=== PATIENT | male | born 1965 | race Two or more races ===

== ENCOUNTER 2018-11-18 02:51 | Inpatient (IN) | payer MEDICAID ==
[~2018-11-18] VITALS: Ht 172.7 cm; Wt 99.8 kg
[2018-11-18 03:15] VITALS: BP 110/71
--- NOTE | 2018-11-18 03:15 | NUR ---
ED Nurse Note: RECIEVED PT FROM HOME ON [facility] AWAKE, ALERT AND ORIENTED X 4, PT HERE WITH C/O SEVERRE,SUDDEN ABDOMINAL PAIN AT 10/10 THAT STARTED AT 1AM, PT ALSO SWEATING PROFUSELY, DENIES CP, MILD SOB DUE TO PAIN, PT IS PALECOLORED, SKIN IS COOL AND SWEATING, PT DENIES DIARRHEA OR ANY OTHER COMPLAINTS OR DISCOMFORTS, PT IMMEDIATELY PLACED ON MONITORING, AND LINE AND LABS DONE, MD AT BEDSIDE, WILL RESUME CARE ORDERED.
[2018-11-18] MEDS ORDERED: PEPTO-BISMOL262 M1 PO (03:17)
--- NOTE | 2018-11-18 03:30 | NUR ---
ED Nurse Note: Blood and urine sample collected and sent to Lab.
--- NOTE | 2018-11-18 03:33 | Emergency Room Report ---
History of Present Illness General Chief Complaint: Abdominal Pain Source: Patient Present Illness HPI This is a 53-year-old male with no past medical history. He presents with chief complaint abdominal pain or vomiting. Onset for last 2 hours. Vomiting is profuse in nature. Abdominal pain is mostly epigastric. Sharp and crampy. No diarrhea. No trauma. No fever chills. No previous abdominal surgery. It is 9 out of 10. No radiation. Allergies: Coded Allergies: No Known Allergies (Unverified , 11/18/18) Patient History Past Medical History: none, see triage record, old chart reviewed Past Surgical History: none Pertinent Family History: none Social History: Denies: smoking Immunizations: other Reviewed Nursing Documentation: PMH: Agreed; PSxH: Agreed Nursing Documentation-PMH Past Medical History: No Stated History Review of Systems Eye: Denies: eye pain, blurred vision ENT: Denies: ear pain, nose congestion, throat swelling Respiratory: Denies: cough, shortness of breath Cardiovascular: Denies: chest pain, palpitations Gastrointestinal: Reports: abdominal pain, nausea, vomiting; Denies: diarrhea Musculoskeletal: Denies: back pain, joint pain Skin: Denies: rash Neurological: Denies: headache, numbness Endocrine: Denies: increased thirst, increased urine Hematologic/Lymphatic: Denies: easy bruising All Other Systems: negative except mentioned in HPI Physical Exam Vital Signs Date Time Temp Pulse Resp B/P (MAP) Pulse Ox O2 Delivery O2 Flow Rate FiO2 11/18/18 03:12 97.9 84 16 81/54 94 Room Air vitals with hypotension Sp02 EP Interpretation: reviewed, normal General Appearance: well appearing, no apparent distress, alert, obese Head: normocephalic, atraumatic Eyes: bilateral eye PERRL, bilateral eye EOMI ENT: hearing grossly normal, normal pharynx Neck: full range of motion, supple, no meningismus Respiratory: chest non-tender, lungs clear, normal breath sounds Cardiovascular #1: regular rate, rhythm, no murmur Gastrointestinal: no mass, no organomegaly, no bruit, non-distended, tenderness - Epigastric, decreased bowel sounds Musculoskeletal: back normal, gait/station normal, normal range of motion Psychiatric: mood/affect normal Skin: warm/dry Medical Decision Making Diagnostic Impression: Primary Impression: Acute gallstone pancreatitis ER Course Patient present with acute upper quadrants abdominal pain. Laboratory data indicate gallstone pancreatitis with probable common bile duct stone. His pain is better controlled. patient will be admitted here. I contacted Dr. Sykes for admis Laboratory Tests Test 11/18/18 03:20 11/18/18 04:24 White Blood Count 15.7 K/UL (4.8-10.8) H Red Blood Count 5.07 M/UL (4.70-6.10) Hemoglobin 16.5 G/DL (14.2-18.0) Hematocrit 46.4 % (42.0-52.0) Mean Corpuscular Volume 91 FL (80-99) Mean Corpuscular Hemoglobin 32.6 PG (27.0-31.0) H Mean Corpuscular Hemoglobin Concent 35.7 G/DL (32.0-36.0) Red Cell Distribution Width 11.3 % (11.6-14.8) L Platelet Count 251 K/UL (150-450) Mean Platelet Volume 7.4 FL (6.5-10.1) Neutrophils (%) (Auto) 68.4 % (45.0-75.0) Lymphocytes (%) (Auto) 23.6 % (20.0-45.0) Monocytes (%) (Auto) 6.0 % (1.0-10.0) Eosinophils (%) (Auto) 0.8 % (0.0-3.0) Basophils (%) (Auto) 1.3 % (0.0-2.0) Sodium Level 140 MMOL/L (136-145) Potassium Level 3.3 MMOL/L (3.5-5.1) L Chloride Level 104 MMOL/L (98-107) Carbon Dioxide Level 23 MMOL/L (21-32) Anion Gap 13 mmol/L (5-15) Blood Urea Nitrogen 14 mg/dL (7-18) Creatinine 1.5 MG/DL (0.55-1.30) H Estimat Glomerular Filtration Rate 49.0 mL/min (>60) Glucose Level 196 MG/DL (74-106) H Calcium Level 9.4 MG/DL (8.5-10.1) Total Bilirubin 1.8 MG/DL (0.2-1.0) H Direct Bilirubin 1.1 MG/DL (0.0-0.3) H Aspartate Amino Transf (AST/SGOT) 656 U/L (15-37) H Alanine Aminotransferase (ALT/SGPT) 693 U/L (12-78) H Alkaline Phosphatase 143 U/L (46-116) H Total Protein 8.4 G/DL (6.4-8.2) H Albumin 4.2 G/DL (3.4-5.0) Globulin 4.2 g/dL Albumin/Globulin Ratio 1.0 (1.0-2.7) Lipase 30366 U/L (73-393) H Urine Color Yellow Urine Appearance Clear Urine pH 5 (4.5-8.0) Urine Specific [place] 1.015 (1.005-1.035) Urine Protein 2+ (NEGATIVE) H Urine Glucose (UA) Negative (NEGATIVE) Urine Ketones Negative (NEGATIVE) Urine Blood 1+ (NEGATIVE) H Urine Nitrite Negative (NEGATIVE) Urine Bilirubin Negative (NEGATIVE) Urine Urobilinogen 1 MG/DL (0.0-1.0) H Urine Leukocyte Esterase Negative (NEGATIVE) Urine RBC 0-2 /HPF (0 - 0) H Urine WBC 0 /HPF (0 - 0) Urine Squamous Epithelial Cells Few /LPF (NONE/OCC) Urine Bacteria None /HPF (NONE) Lab Results Impression labs with elevated liver enzyme and elevated lipase Rhythm Strip Diag. Results EP Interpretation: yes Rate: 90 Rhythm: NSR, no PVC's, no ectopy CT/MRI/US Diagnostic Results CT/MRI/US Diagnostic Results : Imaging Test Ordered: CT abdomen and pelvis Impression Read by radiologist. Pancreatitis. Calcification of the gallbladder fundus. Common bile duct normal caliber. Last Vital Signs Date Time Temp Pulse Resp B/P (MAP) Pulse Ox O2 Delivery O2 Flow Rate FiO2 11/18/18 03:12 97.9 84 16 81/54 94 Room Air Status: improved Disposition: ADMITTED INPATIENT Condition: Serious Referrals: [facility],REFERRING (PCP) Christopher Roa MD Nov 18, 2018 03:33
[2018-11-18 03:44] LABS: BASOPHILS % (AUTO) 1.3 % (0.0-2.0); EOSINOPHILS % (AUTO) 0.8 % (0.0-3.0); HEMATOCRIT 46.4 % (42.0-52.0); HEMOGLOBIN 16.5 G/DL (14.2-18.0); LYMPHOCYTES % (AUTO) 23.6 % (20.0-45.0); MEAN CORPUSCULAR VOLUME 91 FL (80-99); NEUTROPHILS % (AUTO) 68.4 % (45.0-75.0); PLATELET COUNT 251 K/UL (150-450); RED BLOOD COUNT 5.07 M/UL (4.70-6.10); RED CELL DISTRIBUTION WIDTH 11.3 % (11.6-14.8); WHITE BLOOD COUNT 15.7 K/UL (4.8-10.8)
[2018-11-18] MEDS ORDERED: Morphine Sulfate 4mg/ml Inj (IV/IM USE ONLY) IVP ONE (03:45)
[2018-11-18 03:56] LABS: ANION GAP 13 mmol/L (5-15); BLOOD UREA NITROGEN 14 mg/dL (7-18); CALCIUM 9.4 MG/DL (8.5-10.1); CARBON DIOXIDE 23 MMOL/L (21-32); CHLORIDE 104 MMOL/L (98-107); CREATININE 1.5 MG/DL (0.55-1.30); POTASSIUM 3.3 MMOL/L (3.5-5.1); SODIUM 140 MMOL/L (136-145)
[2018-11-18 04:06] LABS: ALANINE AMINOTRANSFERASE 693 U/L (12-78); ALBUMIN 4.2 G/DL (3.4-5.0); ALKALINE PHOSPHATASE 143 U/L (46-116); ASPARTATE AMINO TRANSFERASE 656 U/L (15-37); BILIRUBIN,TOTAL 1.8 MG/DL (0.2-1.0)
[2018-11-18 04:10] LABS: BILIRUBIN,DIRECT 1.1 MG/DL (0.0-0.3)
[2018-11-18] MEDS ORDERED: HYDROmorphone 1mg/ml Carpuject IVP ONE (04:15)
[2018-11-18] MEDS ORDERED: Morphine Sulfate 4mg/ml Inj (IV/IM USE ONLY) ONE (04:18)
--- NOTE | 2018-11-18 04:20 | NUR ---
ED Nurse Note: Pain meds given as ordered.
[2018-11-18 04:29] LABS: APPEARANCE,URINE CLEAR; BILIRUBIN, URINE NEGATIVE (NEGATIVE); GLUCOSE, URINE (UA) NEGATIVE (NEGATIVE); KETONES,URINE NEGATIVE (NEGATIVE); LEUKOCYTE ESTERASE ,URINE NEGATIVE (NEGATIVE); NITRITE,URINE NEGATIVE (NEGATIVE); PH,URINE 5 (4.5-8.0); PROTEIN,URINE 2+ (NEGATIVE); UROBILINOGEN,URINE 1 MG/DL (0.0-1.0)
[2018-11-18] MEDS ORDERED: HYDROmorphone 1mg/ml Carpuject ONE (04:29)
[2018-11-18 04:32] LABS: COLOR,URINE YELLOW
[2018-11-18 05:45] VITALS: BP 150/76
--- NOTE | 2018-11-18 05:45 | NUR ---
NURSE NOTES: Pt came up to unit from ER via [place] w/belongings accounted for; pt's family at bedside.Pt A&Ox4, VSS, and in no apparent distress. IV site intact/asymptomatic & H/L'd; bowel sounds hypoactive; w/o N/V; and c/o 4/10 abdominal pain. Will contact MD for admission orders.
--- NOTE | 2018-11-18 05:55 | NUR ---
TRANSFER TO FLOOR: Patient transferred to 3E/309 as ordered. Report given to Karley/RN. Belongings sent with Pt and re-checked with RN.Pt is A/O X 4. VSS. Accompanied by his family.
[2018-11-18] MEDS ORDERED: NKM (05:59)
[2018-11-18] MEDS ORDERED: Morphine Sulfate 2mg/ml Inj IVP PRN (07:00)
--- NOTE | 2018-11-18 07:43 | NUR ---
HAND-OFF: Report given to IFRAH Guajardo.
[2018-11-18 08:00] VITALS: BP 149/98
--- NOTE | 2018-11-18 08:00 | NUR ---
NURSE NOTES: Patient is alert and oriented,respirations are unlabored.IV in place and patient order for IV fluids as ordered.No complaints at this time.call light within reach.
[2018-11-18] MEDS: D5 1/2NS 1,000 ML IV SCH ×2 (08:41→17:00)
[2018-11-18] MEDS: Heparin 5000 units/ml inj SUBQ SCH ×2 (08:50→20:25)
[2018-11-18] MEDS: Morphine Sulfate 4mg/ml Inj (IV/IM USE ONLY) IVP PRN ×3 (08:59→20:26)
--- NOTE | 2018-11-18 10:34 | NUR ---
CASE MANAGEMENT: REVIEW 53/M BIBA FROM HOME CC: ABD PAIN SI: GALLSTONE . PANCREATITIS T 97.4 HR 81 RR 20 BP 150/76 SAT 96% ROOM AIR WBC 15.7 K 3.3 AST 656 ALT 693 ALK PHOS 143 LIPASE 97767 IS: NS IVF BOLUS X1 MORPHINE 4MG IV X1 ZOFRAN IV X1 INTERQUAL CRITERIA MET: PATIENT ADMITTED TO MED/SURG UNIT 11/18/2017 DCP: PATIENT IS FROM HOME
--- NOTE | 2018-11-18 10:40 | GI Initial Consult Note ---
History of Present Illness General Date patient seen: Nov 18, 2018 Time patient seen: 10:26 Reason for Hospitalization: Abdominal Pain Referring physician: CHUNG HOPSON Reason for Consultation: GALLSTONE PANCREATITIS Present Illness HPI This is a 53-year-old male with no past medical history. He presents with chief complaint abdominal pain or vomiting. Onset for last 2 hours. Vomiting is profuse in nature. Abdominal pain is mostly epigastric. Sharp and crampy. No diarrhea. No trauma. No fever chills. No previous abdominal surgery. It is 9 out of 10. No radiation. GI consulted for gallstone pancreatitis. Patient was seen, awake alert oriented x4 no apparent distress has complaint of severe abdominal pain 9 out of 10.patient reported that the initial onset occurred approximately 2 AM last night. Abdominal pelvic CT was done in the emergency room suggestive of pancreatitis. Labs reviewed; the patient presents today with leukocytosis and lipase of over 14,000. In addition the patient has transaminitis and elevated bilirubin levels. Patient has no history of endoscopic or colonoscopy. Home Meds Reported Medications No Known Medications* (NKM - No Known Medications*) ., 0 ., 0 Refills 11/18/18 Bismuth Subsalicylate (PEPTO-BISMOL) 262 Mg Tablet, 262 MG PO, TAB 11/18/18 Med list reviewed/reconciled: Yes Allergies: Coded Allergies: No Known Allergies (Unverified , 11/18/18) Patient History History Provided By: Patient, Medical Record PMH Narrative Past Medical History: none, see triage record, old chart reviewed Past Surgical History: none Pertinent Family History: none Social History: Denies: smoking Immunizations: other Reviewed Nursing Documentation: PMH: Agreed; PSxH: Agreed Nursing Documentation-PMH Past Medical History: No Stated History Social History: Denies: smoking, alcohol use, drug use, other Review of Systems All Other Systems: negative except mentioned in HPI Physical Exam Vital Signs Date Time Temp Pulse Resp B/P (MAP) Pulse Ox O2 Delivery O2 Flow Rate FiO2 11/18/18 03:12 97.9 84 16 81/54 94 Room Air Sp02 EP Interpretation: reviewed, normal Labs Laboratory Tests Test 11/18/18 03:20 11/18/18 04:24 White Blood Count 15.7 K/UL (4.8-10.8) H Red Blood Count 5.07 M/UL (4.70-6.10) Hemoglobin 16.5 G/DL (14.2-18.0) Hematocrit 46.4 % (42.0-52.0) Mean Corpuscular Volume 91 FL (80-99) Mean Corpuscular Hemoglobin 32.6 PG (27.0-31.0) H Mean Corpuscular Hemoglobin Concent 35.7 G/DL (32.0-36.0) Red Cell Distribution Width 11.3 % (11.6-14.8) L Platelet Count 251 K/UL (150-450) Mean Platelet Volume 7.4 FL (6.5-10.1) Neutrophils (%) (Auto) 68.4 % (45.0-75.0) Lymphocytes (%) (Auto) 23.6 % (20.0-45.0) Monocytes (%) (Auto) 6.0 % (1.0-10.0) Eosinophils (%) (Auto) 0.8 % (0.0-3.0) Basophils (%) (Auto) 1.3 % (0.0-2.0) Sodium Level 140 MMOL/L (136-145) Potassium Level 3.3 MMOL/L (3.5-5.1) L Chloride Level 104 MMOL/L (98-107) Carbon Dioxide Level 23 MMOL/L (21-32) Anion Gap 13 mmol/L (5-15) Blood Urea Nitrogen 14 mg/dL (7-18) Creatinine 1.5 MG/DL (0.55-1.30) H Estimat Glomerular Filtration Rate 49.0 mL/min (>60) Glucose Level 196 MG/DL (74-106) H Calcium Level 9.4 MG/DL (8.5-10.1) Total Bilirubin 1.8 MG/DL (0.2-1.0) H Direct Bilirubin 1.1 MG/DL (0.0-0.3) H Aspartate Amino Transf (AST/SGOT) 656 U/L (15-37) H Alanine Aminotransferase (ALT/SGPT) 693 U/L (12-78) H Alkaline Phosphatase 143 U/L (46-116) H Total Protein 8.4 G/DL (6.4-8.2) H Albumin 4.2 G/DL (3.4-5.0) Globulin 4.2 g/dL Albumin/Globulin Ratio 1.0 (1.0-2.7) Lipase 92654 U/L (73-393) H Urine Color Yellow Urine Appearance Clear Urine pH 5 (4.5-8.0) Urine Specific [place] 1.015 (1.005-1.035) Urine Protein 2+ (NEGATIVE) H Urine Glucose (UA) Negative (NEGATIVE) Urine Ketones Negative (NEGATIVE) Urine Blood 1+ (NEGATIVE) H Urine Nitrite Negative (NEGATIVE) Urine Bilirubin Negative (NEGATIVE) Urine Urobilinogen 1 MG/DL (0.0-1.0) H Urine Leukocyte Esterase Negative (NEGATIVE) Urine RBC 0-2 /HPF (0 - 0) H Urine WBC 0 /HPF (0 - 0) Urine Squamous Epithelial Cells Few /LPF (NONE/OCC) Urine Bacteria None /HPF (NONE) General Appearance: well appearing, no apparent distress, alert Head: normocephalic EENT: PERRL/EOMI, normal ENT inspection Neck: supple Respiratory: normal breath sounds, no respiratory distress Cardiovascular: normal rate Gastrointestinal: normal inspection, non tender, soft, normal bowel sounds, non -distended Rectal: deferred Genitourinary: deferred Musculoskeletal: normal inspection, back normal Neurologic: normal inspection, alert, oriented x3, responsive Psychiatric: normal inspection, judgement/insight normal, memory normal Skin: normal inspection, normal color, no rash, warm/dry, palpation normal, well hydrated Lymphatic: normal inspection, no adenopathy Current Medications Current Medications Medications (Trade) Dose Ordered Sig/Richi Route PRN Reason Start Time Stop Time Status Last Admin Dose Admin Acetaminophen (Tylenol) 650 mg Q6H PRN ORAL Mild Pain/Temp > 100.5 11/18/18 07:00 12/18/18 06:59 Dextrose/Sodium Chloride 1,000 ml @ 100 mls/hr Q10H IV 11/18/18 07:00 12/18/18 06:59 11/18/18 08:41 Heparin Sodium (Porcine) (Heparin 5000 units/ml) 5,000 units EVERY 12 HOURS SUBQ 11/18/18 09:00 12/18/18 08:59 11/18/18 08:50 Morphine Sulfate (Morphine Sulfate) 2 mg Q4H PRN IVP Moderate Pain (Pain Scale 4-6) 11/18/18 09:00 11/25/18 08:59 11/18/18 08:59 Morphine Sulfate (Morphine Sulfate) 4 mg Q4H PRN IVP Severe Pain (Pain Scale 7-10) 11/18/18 07:00 11/25/18 06:59 Ondansetron HCl (Zofran) 4 mg Q4H PRN IVP Nausea & Vomiting 11/18/18 07:00 12/18/18 06:59 GI: Plan Problems: (1) Acute gallstone pancreatitis Plan most likely stone has already passed will order MRCP to confirm ERCP if necessary maintain NPO + IVFs pain mgmt pancreatitis work up fu surgical recs for possible jessica fu labs, lipid panel Discussed with Dr. Ayala. Thank you for this patient referral, we will follow. The patient was seen and examined at bedside and all new and available data was reviewed in the patients chart. I agree with the above findings, impression and plan. (Patient seen earlier today. Signature stamp does not reflect patient encounter time.). - MD Janina RawlsWickenburg Regional HospitalRenuka CREAM CHEESE MAKER Nov 18, 2018 10:40
[2018-11-18 11:56] VITALS: BP 141/94
--- NOTE | 2018-11-18 15:51 | NUR ---
INSURANCE ALL AVAILABLE CLINICALS AND REVIEW FAXED TO: CARLINE CULLEN:GAMA P:[phone] F:[phone]
[2018-11-18 16:00] VITALS: BP 140/83
--- NOTE | 2018-11-18 17:37 | History & Physical ---
History and Physical History & Physicial Jg Sykes MD Nov 18, 2018 17:37
--- NOTE | 2018-11-18 19:00 | NUR ---
NURSE NOTES: patient resting,no complaint of nausea,state slight pain,will endorse to oncoming nurse to asses for pain medication pain ,medication not due at this time. Call light within reach.
--- NOTE | 2018-11-18 19:15 | History and Physical Report ---
DATE OF ADMISSION: 11/18/2018 CHIEF COMPLAINT: Right-sided abdominal pain. HISTORY OF PRESENT ILLNESS: This is a 53-year-old gentleman, who denies any past medical history or past surgical history, who presented to the hospital complaining about right-sided abdominal pain associated with nausea and vomiting, started around 1 o'clock in the morning. The patient stated that the pain was 9/10 in intensity. No radiation. Pain is mostly located in the right side upper abdominal pain with lower abdominal pain and sharp cramping. No diarrhea. No trauma. No fever or chills. No previous abdominal surgery. Shortly after initial evaluation in the ER, the patient was admitted to the hospital with acute gallstone pancreatitis confirmed with the CT scan in the emergency room noted suggestive of pancreatitis. PAST MEDICAL/SURGICAL HISTORY: None. ALLERGIES: No known drug allergies. MEDICATIONS: At home, none. SOCIAL HISTORY: Denies any smoking, alcohol, or drugs. He socially drinks. He lives with family members. FAMILY HISTORY: Noncontributory. REVIEW OF SYSTEMS: Mostly as above. Denies any dysuria, frequency, or hematuria. Complained of nausea and vomiting. Denies any hemoptysis or hematochezia. Denies any suicidal or homicidal ideation. Denies any loss of consciousness. Denies any fall or head trauma. PHYSICAL EXAMINATION: VITAL SIGNS: Temperature 97.9, pulse 84, respirations 16, and blood pressure 81/54. GENERAL: The patient is awake and responsive, in no acute distress. HEAD AND NECK: Pupils are equal and reactive to light. Extraocular movements are intact. Neck was supple. No JVD. LUNGS: Good air entry. No wheezes or rales. HEART: S1 and S2. Distant heart sounds. No murmurs or gallops. ABDOMEN: Soft, tender in right upper quadrant. No rebound tenderness. No fluid shift. EXTREMITIES: No cyanosis, clubbing, or edema. NEUROLOGIC: Cranial nerves II through XII grossly intact. Moves all four extremities. Gait is intact. RECTAL/GENITOURINARY: Refused and deferred. PSYCHIATRIC: Mood and affect is intact. LABORATORY AND DIAGNOSTIC DATA: Laboratory on admission was sodium 140, potassium 3.3, chloride 104, bicarbonate 23, BUN 14, and creatinine 1.5. GFR is 49. Glucose is 196. Total bilirubin 1.8 and direct bilirubin 1.1. AST 656, ALT 693, and alkaline phosphatase 143. Lipase is . WBC 15, hemoglobin 16, hematocrit 46, and platelets 251,000. Urinalysis, +2 glucose, +1 blood, +1 urobilinogen. Negative leukocytes, negative nitrites. ASSESSMENT: Abdominal pain with abnormal liver functions, possibly due to acute gallstone pancreatitis. PLAN: 1. We will follow up with the MRCP to confirm. 2. GI consultation with Dr. Ayala. 3. Pain medication. 4. IV hydration. 5. Code status, Full Code. 6. DVT prophylaxis, heparin subcutaneous. 7. We will monitor blood work in the morning closely and potassium supplement was given due to hypokalemia. Raf Denton JOB#: [id number] CC:
--- NOTE | 2018-11-18 19:45 | NUR ---
HAND-OFF: Report given to Hope RG
--- NOTE | 2018-11-18 19:52 | NUR ---
NURSE NOTES: Pt received awake and alert sitting in chair with family at bedside, call light within reach, no signs of distress at the moment but pt is complaining of pain, will give pain medication.
[2018-11-18 20:00] VITALS: BP 153/97
[2018-11-19] VITALS: BP 148/97
[2018-11-19] MEDS: D5 1/2NS 1,000 ML IV SCH ×3 (01:17→23:03)
[2018-11-19 04:00] VITALS: BP 147/97
[2018-11-19] MEDS: Morphine Sulfate 4mg/ml Inj (IV/IM USE ONLY) IVP PRN ×2 (04:35→15:32)
[2018-11-19 07:48] LABS: BASOPHILS % (AUTO) 0.5 % (0.0-2.0); EOSINOPHILS % (AUTO) 0.1 % (0.0-3.0); HEMATOCRIT 43.9 % (42.0-52.0); HEMOGLOBIN 15.4 G/DL (14.2-18.0); LYMPHOCYTES % (AUTO) 10.1 % (20.0-45.0); MEAN CORPUSCULAR VOLUME 93 FL (80-99); MONOCYTES % (AUTO) 4.8 % (1.0-10.0); NEUTROPHILS % (AUTO) 84.5 % (45.0-75.0); PLATELET COUNT 215 K/UL (150-450); RED CELL DISTRIBUTION WIDTH 11.5 % (11.6-14.8); WHITE BLOOD COUNT 16.2 K/UL (4.8-10.8)
--- NOTE | 2018-11-19 07:51 | NUR ---
NURSE NOTES: Received report from Hope RG. On rounds, patient is awake alert and oriented x4. No s/s acute distress noted. Patient reports pain is managed at this time. NPO maintained. IVF running per order. IV intact and asymptomatic. Family at bedside. Side rails upx2, bed low and locked, call light in reach. Will continue to monitor.
[2018-11-19 08:00] VITALS: BP 117/68
[2018-11-19 08:04] LABS: INR 1.1 (0.9-1.1)
[2018-11-19 08:22] LABS: ALANINE AMINOTRANSFERASE 412 U/L (12-78); ALBUMIN 3.6 G/DL (3.4-5.0); ALBUMIN/GLOBULIN RATIO 0.9 (1.0-2.7); ALKALINE PHOSPHATASE 116 U/L (46-116); ANION GAP 10 mmol/L (5-15); ASPARTATE AMINO TRANSFERASE 90 U/L (15-37); BILIRUBIN,TOTAL 1.5 MG/DL (0.2-1.0); BLOOD UREA NITROGEN 12 mg/dL (7-18); CALCIUM 9.1 MG/DL (8.5-10.1); CARBON DIOXIDE 25 MMOL/L (21-32); CHLORIDE 105 MMOL/L (98-107); CHOLESTEROL 157 MG/DL (< 200); CREATININE 0.9 MG/DL (0.55-1.30); HDL CHOLESTEROL 30 MG/DL (40-60); PHOSPHORUS 2.7 MG/DL (2.5-4.9); POTASSIUM 3.5 MMOL/L (3.5-5.1); SODIUM 140 MMOL/L (136-145); TRIGLYCERIDES 85 MG/DL (30-150)
[2018-11-19 08:24] LABS: AMYLASE 292 U/L (25-115)
[2018-11-19 08:30] LABS: BILIRUBIN,DIRECT 0.3 MG/DL (0.0-0.3)
[2018-11-19] MEDS: Heparin 5000 units/ml inj SUBQ SCH ×2 (08:31→20:54)
--- NOTE | 2018-11-19 08:57 | NUR ---
NURSE NOTES: Called Dr. Sykes and left voicemail with MD informing that patient WBC is 16.2 and Mag is 1.7 this morning. Will await callback from MD and continue to monitor.
--- NOTE | 2018-11-19 09:18 | Consultation ---
History of Present Illness General Date patient seen: Nov 19, 2018 Chief Complaint: Abdominal Pain Referring physician: CHUNG HOPSON Reason for Consultation: GALLSTONE PANCREATITIS Present Illness HPI 53 year old male presented to ED with complaints of acute onset RUQ/epigastric abdominal pain with associated nausea and emesis. States he was well until onset of pain which was described as sharp cramping 9/10 RUQ/epigastric pain without radiation. multiple non bloody emesis. in ED noted to have leukocytosis, elevated LFT's, elevated lipase and CT with cholelithiasis and pancreatitis. Patient was admitted for care and management of acute gallstone pancreatitis. Surgery called to evaluate for gallstone pancreatitis and assist with care/management. Patient seen, chart reviewed, patient examined. states still having pain but improved. currently no n/v/f/c. Allergies: Coded Allergies: No Known Allergies (Unverified , 11/18/18) Medication History Scheduled No Known Medications* (NKM - No Known Medications*), 0 ., (Reported) Miscellaneous Medications Bismuth Subsalicylate (Pepto-Bismol), 262 MG PO, (Reported) Patient History History Provided By: Patient, Medical Record, PMD Healthcare decision maker Resuscitation status Full Code Advanced Directive on File Past Medical/Surgical History Past Medical/Surgical History: (1) Acute gallstone pancreatitis Review of Systems Constitutional: Denies: no symptoms, see HPI, chills, sweats, fever, malaise, weakness, other Eye: Denies: no symptoms, see HPI, eye pain, blurred vision, tearing, double vision, nose pain, nose congestion, acuity changes, discharge, other ENT: Denies: no symptoms, see HPI, ear pain, ear discharge, nose pain, nose congestion, throat pain, throat swelling, mouth pain, hearing loss, nasal discharge, other Respiratory: Denies: no symptoms, see HPI, cough, orthopnea, shortness of breath, stridor, wheezing, ABARCA, sputum, other Cardiovascular: Denies: no symptoms, see HPI, chest pain, edema, palpitations, syncope, PND, other Gastrointestinal: Reports: abdominal pain, nausea, vomiting Genitourinary: Denies: no symptoms, see HPI, discharge, dysuria, frequency, hematuria, pain, retention, incontinence, urgency, vag bleed/dc, other Musculoskeletal: Denies: no symptoms, see HPI, back pain, gout, joint pain, joint swelling, muscle pain, muscle stiffness, other Skin: Denies: no symptoms, see HPI, rash, change in color, change in hair/nails , dryness, lesions, other Psychiatric: Denies: no symptoms, see HPI, prior hx, anxiety, depressed feelings, emotional problems, SI, HI, hallucinations, other Neurological: Denies: no symptoms, see HPI, headache, numbness, paresthesia, seizure, tingling, tremors, focal weakness, syncope, dizziness, other Endocrine: Denies: no symptoms, see HPI, excessive sweating, flushing, intolerance to temperature, increased thirst, increased urine, unexplained weight loss, other Hematologic/Lymphatic: Denies: no symptoms, see HPI, anemia, blood clots, easy bleeding, easy bruising, swollen glands, diathesis, other All Other Systems: negative except mentioned in HPI Physical Exam General Appearance: no apparent distress, alert Lines, tubes and drains: peripheral HEENT: mucous membranes moist Neck: normal inspection Respiratory/Chest: normal breath sounds, no respiratory distress, no accessory muscle use Cardiovascular/Chest: regular rhythm Abdomen: normal bowel sounds, soft, no organomegaly, no mass, distended, tender Extremities: normal inspection Skin Exam: warm/dry Neurologic: alert, oriented x 3 Last 24 Hour Vital Signs Date Time Temp Pulse Resp B/P (MAP) Pulse Ox O2 Delivery O2 Flow Rate FiO2 11/19/18 08:00 97.7 94 18 117/68 (84) 95 11/19/18 04:00 97.4 97 20 147/97 (114) 95 11/19/18 00:00 98.3 102 20 148/97 (114) 96 11/18/18 21:00 Room Air 11/18/18 20:00 98.2 99 20 153/97 (115) 94 11/18/18 16:00 98.9 91 19 140/83 (102) 97 11/18/18 11:56 99.0 88 19 141/94 (110) 98 Intake and Output 11/18/18 11/19/18 19:00 07:00 Intake Total 400 ml 1100 ml Balance 400 ml 1100 ml Intake IV Total 400 ml 1100 ml # Voids 3 Laboratory Tests Test 11/19/18 06:57 White Blood Count 16.2 K/UL (4.8-10.8) H Red Blood Count 4.70 M/UL (4.70-6.10) Hemoglobin 15.4 G/DL (14.2-18.0) Hematocrit 43.9 % (42.0-52.0) Mean Corpuscular Volume 93 FL (80-99) Mean Corpuscular Hemoglobin 32.8 PG (27.0-31.0) H Mean Corpuscular Hemoglobin Concent 35.1 G/DL (32.0-36.0) Red Cell Distribution Width 11.5 % (11.6-14.8) L Platelet Count 215 K/UL (150-450) Mean Platelet Volume 7.1 FL (6.5-10.1) Neutrophils (%) (Auto) 84.5 % (45.0-75.0) H Lymphocytes (%) (Auto) 10.1 % (20.0-45.0) L Monocytes (%) (Auto) 4.8 % (1.0-10.0) Eosinophils (%) (Auto) 0.1 % (0.0-3.0) Basophils (%) (Auto) 0.5 % (0.0-2.0) Prothrombin Time 12.0 SEC (9.30-11.50) H Prothromb Time International Ratio 1.1 (0.9-1.1) Activated Partial Thromboplast Time 30 SEC (23-33) Sodium Level 140 MMOL/L (136-145) Potassium Level 3.5 MMOL/L (3.5-5.1) Chloride Level 105 MMOL/L (98-107) Carbon Dioxide Level 25 MMOL/L (21-32) Anion Gap 10 mmol/L (5-15) Blood Urea Nitrogen 12 mg/dL (7-18) Creatinine 0.9 MG/DL (0.55-1.30) Estimat Glomerular Filtration Rate > 60 mL/min (>60) Glucose Level 172 MG/DL (74-106) H Calcium Level 9.1 MG/DL (8.5-10.1) Phosphorus Level 2.7 MG/DL (2.5-4.9) Magnesium Level 1.7 MG/DL (1.8-2.4) L Total Bilirubin 1.5 MG/DL (0.2-1.0) H Direct Bilirubin 0.3 MG/DL (0.0-0.3) Aspartate Amino Transf (AST/SGOT) 90 U/L (15-37) H Alanine Aminotransferase (ALT/SGPT) 412 U/L (12-78) H Alkaline Phosphatase 116 U/L (46-116) Total Protein 7.5 G/DL (6.4-8.2) Albumin 3.6 G/DL (3.4-5.0) Globulin 3.9 g/dL Albumin/Globulin Ratio 0.9 (1.0-2.7) L Triglycerides Level 85 MG/DL (30-150) Cholesterol Level 157 MG/DL (< 200) LDL Cholesterol 122 mg/dL (<100) H HDL Cholesterol 30 MG/DL (40-60) L Cholesterol/HDL Ratio 5.2 (3.3-4.4) H Amylase Level 292 U/L (25-115) H Lipase > 2000 U/L (73-393) H CA 19-9 Antigen Pending Height (Feet): 5 Height (Inches): 8.00 Weight (Pounds): 220 Medications Current Medications Medications (Trade) Dose Ordered Sig/Richi Route PRN Reason Start Time Stop Time Status Last Admin Dose Admin Acetaminophen (Tylenol) 650 mg Q6H PRN ORAL Mild Pain/Temp > 100.5 11/18/18 07:00 12/18/18 06:59 Dextrose/Sodium Chloride 1,000 ml @ 100 mls/hr Q10H IV 11/18/18 07:00 12/18/18 06:59 11/19/18 01:17 Heparin Sodium (Porcine) (Heparin 5000 units/ml) 5,000 units EVERY 12 HOURS SUBQ 11/18/18 09:00 12/18/18 08:59 11/19/18 08:31 Morphine Sulfate (Morphine Sulfate) 2 mg Q4H PRN IVP Moderate Pain (Pain Scale 4-6) 11/18/18 09:00 11/25/18 08:59 11/19/18 04:35 Morphine Sulfate (Morphine Sulfate) 4 mg Q4H PRN IVP Severe Pain (Pain Scale 7-10) 11/18/18 07:00 11/25/18 06:59 Ondansetron HCl (Zofran) 4 mg Q4H PRN IVP Nausea & Vomiting 11/18/18 07:00 12/18/18 06:59 Assessment/Plan Problem List: (1) Acute gallstone pancreatitis Assessment & Plan: Acute gallstone pancreatitis Leukocytosis LFT's improved Lipase improved CT noted. US and MRCP pending final read clinically likely has cholecystitis / acute gallstone pancreatitis will await result of MRCP NPO IV fluids IV Abx trend labs will evaluate for cholecystectomy as patient recovers. thank you will follow with recs. ICD Codes: K85.10 - Biliary acute pancreatitis without necrosis or infection SNOMED: 603441525 Status: stable Steve Benson Nov 19, 2018 09:18
[2018-11-19] MEDS: Piperacillin/Tazobactam 3.375 GM in NS 110 ML IVPB SCH ×2 (10:24→17:51)
--- NOTE | 2018-11-19 10:25 | NUR ---
NURSE NOTES: Dr. Sykes called and gave orders for magnesium replacement. Orders entered, will carry out.
--- NOTE | 2018-11-19 10:33 | General Progress Note ---
Assessment/Plan Problem List: (1) Acute gallstone pancreatitis ICD Codes: K85.10 - Biliary acute pancreatitis without necrosis or infection SNOMED: 589318865 Assessment/Plan improving LFTS fu imagine studies start clears fu labs fu surg recs Subjective ROS Limited/Unobtainable: Yes Allergies: Coded Allergies: No Known Allergies (Unverified , 11/18/18) Objective Last 24 Hour Vital Signs Date Time Temp Pulse Resp B/P (MAP) Pulse Ox O2 Delivery O2 Flow Rate FiO2 11/19/18 08:00 97.7 94 18 117/68 (84) 95 11/19/18 04:00 97.4 97 20 147/97 (114) 95 11/19/18 00:00 98.3 102 20 148/97 (114) 96 11/18/18 21:00 Room Air 11/18/18 20:00 98.2 99 20 153/97 (115) 94 11/18/18 16:00 98.9 91 19 140/83 (102) 97 11/18/18 11:56 99.0 88 19 141/94 (110) 98 Intake and Output 11/18/18 11/19/18 19:00 07:00 Intake Total 400 ml 1100 ml Balance 400 ml 1100 ml Intake IV Total 400 ml 1100 ml # Voids 3 Laboratory Tests 11/19/18 06:57: White Blood Count 16.2H, Red Blood Count 4.70, Hemoglobin 15.4, Hematocrit 43.9 , Mean Corpuscular Volume 93, Mean Corpuscular Hemoglobin 32.8H, Mean Corpuscular Hemoglobin Concent 35.1, Red Cell Distribution Width 11.5L, Platelet Count 215, Mean Platelet Volume 7.1, Neutrophils (%) (Auto) 84.5H, Lymphocytes (%) (Auto) 10.1L, Monocytes (%) (Auto) 4.8, Eosinophils (%) (Auto) 0.1, Basophils (%) (Auto) 0.5, Prothrombin Time 12.0H, Prothromb Time International Ratio 1.1, Activated Partial Thromboplast Time 30, Sodium Level 140, Potassium Level 3.5, Chloride Level 105, Carbon Dioxide Level 25, Anion Gap 10, Blood Urea Nitrogen 12, Creatinine 0.9, Estimat Glomerular Filtration Rate > 60, Glucose Level 172H, Calcium Level 9.1, Phosphorus Level 2.7, Magnesium Level 1.7L, Total Bilirubin 1.5H, Direct Bilirubin 0.3, Aspartate Amino Transf (AST/SGOT) 90H, Alanine Aminotransferase (ALT/SGPT) 412H, Alkaline Phosphatase 116, Total Protein 7.5, Albumin 3.6, Globulin 3.9, Albumin/Globulin Ratio 0.9L, Triglycerides Level 85, Cholesterol Level 157, LDL Cholesterol 122H , HDL Cholesterol 30L, Cholesterol/HDL Ratio 5.2H, Amylase Level 292H, Lipase > 2000H, CA 19-9 Antigen [Pending] Height (Feet): 5 Height (Inches): 8.00 Weight (Pounds): 220 General Appearance: alert EENT: normal ENT inspection Neck: supple Cardiovascular: normal rate Respiratory/Chest: lungs clear Abdomen: soft, decreased bowel sounds, tender Extremities: non-tender Lonnie Ayala MD Nov 19, 2018 10:33
[2018-11-19 12:01] VITALS: BP 153/96
[2018-11-19] MEDS: Magnesium Oxide 400mg tab ORAL SCH ×2 (13:20→17:51)
--- NOTE | 2018-11-19 13:34 | NUR ---
CASE MANAGEMENT:REVIEW 11/19/18 SI: GALLSTONE PANCREATITIS 98.2 97 17 153/96 100% ON RA WBC 16.2 LIPASE>2000 IS: IV ZOSYN Q8HRS IVF@100/HR HEPARIN SQ Q12 IV MORPHINE Q4HRS : MED/SURG [facility]
--- NOTE | 2018-11-19 15:09 | Internal Med Progress Note ---
Subjective Date of Service: Nov 19, 2018 Physician Name Patrice Arthur Attending Physician Jg Sykes MD Current Medications Medications (Trade) Dose Ordered Sig/Richi Route PRN Reason Start Time Stop Time Status Last Admin Dose Admin Acetaminophen (Tylenol) 650 mg Q6H PRN ORAL Mild Pain/Temp > 100.5 11/18/18 07:00 12/18/18 06:59 Dextrose/Sodium Chloride 1,000 ml @ 100 mls/hr Q10H IV 11/18/18 07:00 12/18/18 06:59 11/19/18 13:20 Heparin Sodium (Porcine) (Heparin 5000 units/ml) 5,000 units EVERY 12 HOURS SUBQ 11/18/18 09:00 12/18/18 08:59 11/19/18 08:31 Magnesium Oxide (Mag-Ox 400mg) 400 mg THREE TIMES A DAY ORAL 11/19/18 13:00 11/21/18 12:59 11/19/18 13:20 Morphine Sulfate (Morphine Sulfate) 2 mg Q4H PRN IVP Moderate Pain (Pain Scale 4-6) 11/18/18 09:00 11/25/18 08:59 11/19/18 04:35 Morphine Sulfate (Morphine Sulfate) 4 mg Q4H PRN IVP Severe Pain (Pain Scale 7-10) 11/18/18 07:00 11/25/18 06:59 Ondansetron HCl (Zofran) 4 mg Q4H PRN IVP Nausea & Vomiting 11/18/18 07:00 12/18/18 06:59 Piperacillin Sod/ Tazobactam Sod 3.375 gm/Sodium Chloride 110 ml @ 27.5 mls/hr Q8H IVPB 11/19/18 10:00 11/26/18 09:59 11/19/18 10:24 Allergies: Coded Allergies: No Known Allergies (Unverified , 11/18/18) ROS Limited/Unobtainable: No Constitutional: Reports: no symptoms HEENT: Reports: no symptoms Cardiovascular: Reports: no symptoms Respiratory: Reports: no symptoms Gastrointestinal/Abdominal: Reports: abdominal pain Genitourinary: Reports: no symptoms Neurologic/Psychiatric: Reports: no symptoms Subjective 53 YO M admitted with abdominal pain, nausea and vomiting. Now Gallstone pancreatitis. Await MRCP results. Cover for Int Med-Dr Sykes Objective Last Vital Signs Date Time Temp Pulse Resp B/P (MAP) Pulse Ox O2 Delivery O2 Flow Rate FiO2 11/19/18 12:01 98.2 97 17 153/96 (115) 100 11/19/18 09:00 Room Air General Appearance: WD/WN, no apparent distress, alert EENT: PERRL/EOMI, normal ENT inspection Neck: non-tender, normal alignment, supple, normal inspection Cardiovascular: normal peripheral pulses, normal rate, regular rhythm, no gallop/murmur, no JVD Respiratory/Chest: chest wall non-tender, lungs clear, normal breath sounds, no respiratory distress, no accessory muscle use Abdomen: no organomegaly, no mass, decreased bowel sounds, guarding, tender Extremities: normal range of motion, non-tender 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, no motor/sensory deficits Skin: normal pigmentation, warm/dry Laboratory Tests Test 11/19/18 06:57 White Blood Count 16.2 K/UL (4.8-10.8) H Red Blood Count 4.70 M/UL (4.70-6.10) Hemoglobin 15.4 G/DL (14.2-18.0) Hematocrit 43.9 % (42.0-52.0) Mean Corpuscular Volume 93 FL (80-99) Mean Corpuscular Hemoglobin 32.8 PG (27.0-31.0) H Mean Corpuscular Hemoglobin Concent 35.1 G/DL (32.0-36.0) Red Cell Distribution Width 11.5 % (11.6-14.8) L Platelet Count 215 K/UL (150-450) Mean Platelet Volume 7.1 FL (6.5-10.1) Neutrophils (%) (Auto) 84.5 % (45.0-75.0) H Lymphocytes (%) (Auto) 10.1 % (20.0-45.0) L Monocytes (%) (Auto) 4.8 % (1.0-10.0) Eosinophils (%) (Auto) 0.1 % (0.0-3.0) Basophils (%) (Auto) 0.5 % (0.0-2.0) Prothrombin Time 12.0 SEC (9.30-11.50) H Prothromb Time International Ratio 1.1 (0.9-1.1) Activated Partial Thromboplast Time 30 SEC (23-33) Sodium Level 140 MMOL/L (136-145) Potassium Level 3.5 MMOL/L (3.5-5.1) Chloride Level 105 MMOL/L (98-107) Carbon Dioxide Level 25 MMOL/L (21-32) Anion Gap 10 mmol/L (5-15) Blood Urea Nitrogen 12 mg/dL (7-18) Creatinine 0.9 MG/DL (0.55-1.30) Estimat Glomerular Filtration Rate > 60 mL/min (>60) Glucose Level 172 MG/DL (74-106) H Calcium Level 9.1 MG/DL (8.5-10.1) Phosphorus Level 2.7 MG/DL (2.5-4.9) Magnesium Level 1.7 MG/DL (1.8-2.4) L Total Bilirubin 1.5 MG/DL (0.2-1.0) H Direct Bilirubin 0.3 MG/DL (0.0-0.3) Aspartate Amino Transf (AST/SGOT) 90 U/L (15-37) H Alanine Aminotransferase (ALT/SGPT) 412 U/L (12-78) H Alkaline Phosphatase 116 U/L (46-116) Total Protein 7.5 G/DL (6.4-8.2) Albumin 3.6 G/DL (3.4-5.0) Globulin 3.9 g/dL Albumin/Globulin Ratio 0.9 (1.0-2.7) L Triglycerides Level 85 MG/DL (30-150) Cholesterol Level 157 MG/DL (< 200) LDL Cholesterol 122 mg/dL (<100) H HDL Cholesterol 30 MG/DL (40-60) L Cholesterol/HDL Ratio 5.2 (3.3-4.4) H Amylase Level 292 U/L (25-115) H Lipase > 2000 U/L (73-393) H CA 19-9 Antigen Pending Intake and Output 11/18/18 11/19/18 19:00 07:00 Intake Total 400 ml 1100 ml Balance 400 ml 1100 ml Intake IV Total 400 ml 1100 ml # Voids 3 Assessment/Plan Problem List: (1) Abdominal pain, right upper quadrant (2) Nausea & vomiting (3) Acute gallstone pancreatitis Patrice Arthur MD Nov 19, 2018 15:09
--- NOTE | 2018-11-19 15:10 | Internal Med Progress Note ---
Subjective Date of Service: Nov 19, 2018 Physician Name Patrice Arthur Attending Physician Jg Sykes MD Current Medications Medications (Trade) Dose Ordered Sig/Richi Route PRN Reason Start Time Stop Time Status Last Admin Dose Admin Acetaminophen (Tylenol) 650 mg Q6H PRN ORAL Mild Pain/Temp > 100.5 11/18/18 07:00 12/18/18 06:59 Dextrose/Sodium Chloride 1,000 ml @ 100 mls/hr Q10H IV 11/18/18 07:00 12/18/18 06:59 11/19/18 13:20 Heparin Sodium (Porcine) (Heparin 5000 units/ml) 5,000 units EVERY 12 HOURS SUBQ 11/18/18 09:00 12/18/18 08:59 11/19/18 08:31 Magnesium Oxide (Mag-Ox 400mg) 400 mg THREE TIMES A DAY ORAL 11/19/18 13:00 11/21/18 12:59 11/19/18 13:20 Morphine Sulfate (Morphine Sulfate) 2 mg Q4H PRN IVP Moderate Pain (Pain Scale 4-6) 11/18/18 09:00 11/25/18 08:59 11/19/18 04:35 Morphine Sulfate (Morphine Sulfate) 4 mg Q4H PRN IVP Severe Pain (Pain Scale 7-10) 11/18/18 07:00 11/25/18 06:59 Ondansetron HCl (Zofran) 4 mg Q4H PRN IVP Nausea & Vomiting 11/18/18 07:00 12/18/18 06:59 Piperacillin Sod/ Tazobactam Sod 3.375 gm/Sodium Chloride 110 ml @ 27.5 mls/hr Q8H IVPB 11/19/18 10:00 11/26/18 09:59 11/19/18 10:24 Allergies: Coded Allergies: No Known Allergies (Unverified , 11/18/18) ROS Limited/Unobtainable: No Constitutional: Reports: no symptoms HEENT: Reports: no symptoms Cardiovascular: Reports: no symptoms Respiratory: Reports: no symptoms Gastrointestinal/Abdominal: Reports: no symptoms Genitourinary: Reports: no symptoms Neurologic/Psychiatric: Reports: no symptoms Subjective 53 YO M admitted with abdominal pain, nausea and vomiting. Now Gallstone pancreatitis. Await MRCP results. Cover for Int Med-Dr Sykes Objective Last Vital Signs Date Time Temp Pulse Resp B/P (MAP) Pulse Ox O2 Delivery O2 Flow Rate FiO2 11/19/18 12:01 98.2 97 17 153/96 (115) 100 11/19/18 09:00 Room Air Laboratory Tests Test 11/19/18 06:57 White Blood Count 16.2 K/UL (4.8-10.8) H Red Blood Count 4.70 M/UL (4.70-6.10) Hemoglobin 15.4 G/DL (14.2-18.0) Hematocrit 43.9 % (42.0-52.0) Mean Corpuscular Volume 93 FL (80-99) Mean Corpuscular Hemoglobin 32.8 PG (27.0-31.0) H Mean Corpuscular Hemoglobin Concent 35.1 G/DL (32.0-36.0) Red Cell Distribution Width 11.5 % (11.6-14.8) L Platelet Count 215 K/UL (150-450) Mean Platelet Volume 7.1 FL (6.5-10.1) Neutrophils (%) (Auto) 84.5 % (45.0-75.0) H Lymphocytes (%) (Auto) 10.1 % (20.0-45.0) L Monocytes (%) (Auto) 4.8 % (1.0-10.0) Eosinophils (%) (Auto) 0.1 % (0.0-3.0) Basophils (%) (Auto) 0.5 % (0.0-2.0) Prothrombin Time 12.0 SEC (9.30-11.50) H Prothromb Time International Ratio 1.1 (0.9-1.1) Activated Partial Thromboplast Time 30 SEC (23-33) Sodium Level 140 MMOL/L (136-145) Potassium Level 3.5 MMOL/L (3.5-5.1) Chloride Level 105 MMOL/L (98-107) Carbon Dioxide Level 25 MMOL/L (21-32) Anion Gap 10 mmol/L (5-15) Blood Urea Nitrogen 12 mg/dL (7-18) Creatinine 0.9 MG/DL (0.55-1.30) Estimat Glomerular Filtration Rate > 60 mL/min (>60) Glucose Level 172 MG/DL (74-106) H Calcium Level 9.1 MG/DL (8.5-10.1) Phosphorus Level 2.7 MG/DL (2.5-4.9) Magnesium Level 1.7 MG/DL (1.8-2.4) L Total Bilirubin 1.5 MG/DL (0.2-1.0) H Direct Bilirubin 0.3 MG/DL (0.0-0.3) Aspartate Amino Transf (AST/SGOT) 90 U/L (15-37) H Alanine Aminotransferase (ALT/SGPT) 412 U/L (12-78) H Alkaline Phosphatase 116 U/L (46-116) Total Protein 7.5 G/DL (6.4-8.2) Albumin 3.6 G/DL (3.4-5.0) Globulin 3.9 g/dL Albumin/Globulin Ratio 0.9 (1.0-2.7) L Triglycerides Level 85 MG/DL (30-150) Cholesterol Level 157 MG/DL (< 200) LDL Cholesterol 122 mg/dL (<100) H HDL Cholesterol 30 MG/DL (40-60) L Cholesterol/HDL Ratio 5.2 (3.3-4.4) H Amylase Level 292 U/L (25-115) H Lipase > 2000 U/L (73-393) H CA 19-9 Antigen Pending Intake and Output 11/18/18 11/19/18 19:00 07:00 Intake Total 400 ml 1100 ml Balance 400 ml 1100 ml Intake IV Total 400 ml 1100 ml # Voids 3 Objective General Appearance: WD/WN, no apparent distress, alert EENT: PERRL/EOMI, normal ENT inspection Neck: non-tender, normal alignment, supple, normal inspection Cardiovascular: normal peripheral pulses, normal rate, regular rhythm, no gallop/murmur, no JVD Respiratory/Chest: chest wall non-tender, lungs clear, normal breath sounds, no respiratory distress, no accessory muscle use Abdomen: no organomegaly, no mass, decreased bowel sounds, guarding, tender Extremities: normal range of motion, non-tender 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 NPO. Await MRCP results. March require cholecystectomy Patrice Arthur MD Nov 19, 2018 15:10
--- NOTE | 2018-11-19 15:48 | Diagnostic Imaging Report ---
Indication: Abdominal pain Technique: Continuous helical transaxial imaging of the abdomen and pelvis was obtained from the lung bases to the pubic symphysis. No intravenous contrast was administered. Coronal 2-D reformats were also obtained. Automatic Exposure Control was utilized. Total Dose length Product (DLP): 1049.[address] Dose Index Volume (CTDIvol): 19.28 mGy Comparison: none Findings: Posterior basilar reticular densities are noted. Mild bronchiectasis noted at the lung bases. Liver attenuation is diffusely decreased. There is a hiatal hernia. Spleen appears to be normal size. There is calcification of the wall the gallbladder in the fundal region. There is enlargement of the pancreas which is ill-defined with moderate peripancreatic inflammation consistent with acute pancreatitis. There is no obvious biliary ductal dilatation demonstrated. There is no hydronephrosis. Tiny punctate nonobstructive stones demonstrated within the right kidney. Adrenal glands are unremarkable. There is no abscess or evidence of free fluid. The appendix is normal. Some diverticula noted in the sigmoid colon. Urinary bladder is mostly nondistended. Bilateral inguinal hernias containing fat demonstrated larger on the left. Mild prostate calcification in noted. IMPRESSION: Acute pancreatitis. Calcified wall of the fundal region of the gallbladder versus prominent gallstone. Diverticulosis of the colon. No definite diverticulitis. Query mild fatty liver. Moderate size hiatal hernia. Nonobstructive tiny stones in the right kidney. Normal appendix Diverticulosis of the colon Bilateral inguinal hernias containing fat left larger than right. [facility] has communicated the preliminary results to the Emergency Department. Their findings are largely concordant with this report. The CT scanner at [facility] is accredited by the [employer] and the scans are performed using dose optimization techniques as appropriate to a performed exam including Automatic Exposure control.
--- NOTE | 2018-11-19 15:49 | Diagnostic Imaging Report ---
Indication:Abdominal pain Technique: Grayscale and duplex Doppler imaging of the abdomen performed. Comparison: None Findings: The liver is unremarkable. The gallbladder is not readily identified but there is a focus of shadowing that corresponds to a calcified wall on recent CT versus a gallstone. This distinction is difficult to make on the current exam.. No tenderness elicited. CBD is 4 mm. The demonstrated part of the pancreas, aorta and IVC show no abnormalities. There is a moderate degree of epigastric bowel gas limiting evaluation of the pancreas. Both kidneys appear unremarkable. The spleen is normal in size. Doppler evaluation of the main portal vein shows patency. There is no ascites. No hydronephrosis seen. Impression: Gallstone versus focal calcification of the gallbladder fundus as has been described on the recent CT. Negative sonographic De La Fuente's. Limited evaluation as discussed above
--- NOTE | 2018-11-19 15:49 | Diagnostic Imaging Report ---
Indication: Acute pancreatitis. Abdominal pain. Vomiting. Technique: MRI of the abdomen was performed in a 1.5 Lyla magnet. Pulse sequences obtained include coronal and axial T2 single shot fast spin echo breathhold and respiratory gated coronal T2 3-D M.R.C.P.; this data set was displayed in different projections or MIPs. In addition, multiple coronal oblique thin T2 weighted, fat saturated SE sequences obtained through the CBD. Comparison: CT and ultrasound Findings: Current study confirms presence of multiple stones in the gallbladder seen as multiple small round low signal intensity foci within the gallbladder lumen. Low signal associated with the fundal region may represent wall thickening and calcification for which there is evidence of on CT. There is no biliary ductal dilatation demonstrated. The CBD diameter is normal. There is no evidence of choledocholithiasis. Once again, there are changes consistent with acute pancreatitis noted including enlargement of the pancreas and peripancreatic T2 hyperintense fluid signal intensity. Mild degree of pancreatic ascites noted with the fluid tracking down the paracolic gutters bilaterally. T2 hyperintense fluid and inflammation also noted in the anterior pararenal space bilaterally. Trace fluid also noted around the liver. Hiatal hernia is present. There is breathing motion which limits evaluation. A tiny cyst noted in the left kidney. IMPRESSION: Cholelithiasis confirmed on this examination. No evidence of biliary ductal dilatation or choledocholithiasis. Acute pancreatitis Left renal cyst
[2018-11-19 16:00] VITALS: BP 136/76
--- NOTE | 2018-11-19 19:21 | NUR ---
HAND-OFF: Report given to Luis RG. Patient stable.
--- NOTE | 2018-11-19 19:30 | NUR ---
NURSE NOTES: Report received from off -going nurse . Assume care.
[2018-11-19 20:00] VITALS: BP 133/99
[2018-11-20] VITALS: BP 140/95
[2018-11-20] MEDS: Piperacillin/Tazobactam 3.375 GM in NS 110 ML IVPB SCH ×3 (02:17→17:31)
[2018-11-20] MEDS: Morphine Sulfate 4mg/ml Inj (IV/IM USE ONLY) IVP PRN (03:37)
[2018-11-20 04:00] VITALS: BP 126/91
--- NOTE | 2018-11-20 06:35 | General Progress Note ---
Assessment/Plan Problem List: (1) Acute gallstone pancreatitis ICD Codes: K85.10 - Biliary acute pancreatitis without necrosis or infection SNOMED: 289878269 Assessment/Plan improving LFTS neg MRCP for CBD stones no need for ERCP at this time fu labs fu surg recs Subjective ROS Limited/Unobtainable: Yes Allergies: Coded Allergies: No Known Allergies (Unverified , 11/18/18) Objective Last 24 Hour Vital Signs Date Time Temp Pulse Resp B/P (MAP) Pulse Ox O2 Delivery O2 Flow Rate FiO2 11/20/18 04:00 98.0 91 17 126/91 (103) 96 11/20/18 00:00 99.8 91 18 140/95 (110) 97 11/19/18 21:45 99.9 11/19/18 21:00 Room Air 11/19/18 20:00 100.5 104 18 133/99 (110) 94 11/19/18 16:00 99.2 95 18 136/76 (96) 96 11/19/18 12:01 98.2 97 17 153/96 (115) 100 11/19/18 09:00 Room Air 11/19/18 08:00 97.7 94 18 117/68 (84) 95 Intake and Output 11/19/18 11/20/18 19:00 07:00 Intake Total 1815.0 ml 510.0 ml Balance 1815.0 ml 510.0 ml Intake Oral 1050 ml IV Total 765.0 ml 510.0 ml # Voids 3 Laboratory Tests 11/19/18 06:57: White Blood Count 16.2H, Red Blood Count 4.70, Hemoglobin 15.4, Hematocrit 43.9 , Mean Corpuscular Volume 93, Mean Corpuscular Hemoglobin 32.8H, Mean Corpuscular Hemoglobin Concent 35.1, Red Cell Distribution Width 11.5L, Platelet Count 215, Mean Platelet Volume 7.1, Neutrophils (%) (Auto) 84.5H, Lymphocytes (%) (Auto) 10.1L, Monocytes (%) (Auto) 4.8, Eosinophils (%) (Auto) 0.1, Basophils (%) (Auto) 0.5, Prothrombin Time 12.0H, Prothromb Time International Ratio 1.1, Activated Partial Thromboplast Time 30, Sodium Level 140, Potassium Level 3.5, Chloride Level 105, Carbon Dioxide Level 25, Anion Gap 10, Blood Urea Nitrogen 12, Creatinine 0.9, Estimat Glomerular Filtration Rate > 60, Glucose Level 172H, Calcium Level 9.1, Phosphorus Level 2.7, Magnesium Level 1.7L, Total Bilirubin 1.5H, Direct Bilirubin 0.3, Aspartate Amino Transf (AST/SGOT) 90H, Alanine Aminotransferase (ALT/SGPT) 412H, Alkaline Phosphatase 116, Total Protein 7.5, Albumin 3.6, Globulin 3.9, Albumin/Globulin Ratio 0.9L, Triglycerides Level 85, Cholesterol Level 157, LDL Cholesterol 122H , HDL Cholesterol 30L, Cholesterol/HDL Ratio 5.2H, Amylase Level 292H, Lipase > 2000H, CA 19-9 Antigen [Pending] Height (Feet): 5 Height (Inches): 8.00 Weight (Pounds): 220 General Appearance: alert EENT: normal ENT inspection Neck: supple Cardiovascular: normal rate Respiratory/Chest: decreased breath sounds Abdomen: soft, hypoactive bowel sounds, tender Extremities: non-tender Lonnie Ayala MD Nov 20, 2018 06:35
--- NOTE | 2018-11-20 07:00 | NUR ---
HAND-OFF: Report given to [].
--- NOTE | 2018-11-20 07:00 | NUR ---
HAND-OFF: report given to Marli shipley RN Report given to [].
--- NOTE | 2018-11-20 07:22 | NUR ---
NURSE NOTES: WALKING ROUNDS DONE WITH OUTGOING RN. PATIENT ASLEEP. CALL LIGHT WITHIN REACH. BED IN LOW AND LOCKED POSITION.
[2018-11-20 08:00] VITALS: BP 140/93
[2018-11-20] MEDS: Magnesium Oxide 400mg tab ORAL SCH ×3 (08:19→17:30)
[2018-11-20] MEDS: Heparin 5000 units/ml inj SUBQ SCH ×2 (08:21→21:24)
[2018-11-20 08:28] LABS: BASOPHILS % (AUTO) 0.6 % (0.0-2.0); EOSINOPHILS % (AUTO) 0.8 % (0.0-3.0); HEMOGLOBIN 15.1 G/DL (14.2-18.0); LYMPHOCYTES % (AUTO) 10.1 % (20.0-45.0); MEAN CORPUSCULAR VOLUME 93 FL (80-99); MONOCYTES % (AUTO) 6.9 % (1.0-10.0); NEUTROPHILS % (AUTO) 81.6 % (45.0-75.0); PLATELET COUNT 212 K/UL (150-450); RED BLOOD COUNT 4.62 M/UL (4.70-6.10); RED CELL DISTRIBUTION WIDTH 11.3 % (11.6-14.8); WHITE BLOOD COUNT 15.6 K/UL (4.8-10.8)
[2018-11-20 08:36] LABS: PHOSPHORUS 2.8 MG/DL (2.5-4.9)
[2018-11-20 08:53] LABS: ALANINE AMINOTRANSFERASE 234 U/L (12-78); ALBUMIN 3.1 G/DL (3.4-5.0); ALBUMIN/GLOBULIN RATIO 0.8 (1.0-2.7); ALKALINE PHOSPHATASE 111 U/L (46-116); AMYLASE 92 U/L (25-115); ANION GAP 10 mmol/L (5-15); ASPARTATE AMINO TRANSFERASE 47 U/L (15-37); BILIRUBIN,TOTAL 2.5 MG/DL (0.2-1.0); BLOOD UREA NITROGEN < 1 mg/dL (7-18); CALCIUM 8.8 MG/DL (8.5-10.1); CARBON DIOXIDE 26 MMOL/L (21-32); CHLORIDE 101 MMOL/L (98-107); CREATININE 0.9 MG/DL (0.55-1.30); POTASSIUM 3.1 MMOL/L (3.5-5.1); SODIUM 137 MMOL/L (136-145)
[2018-11-20] MEDS: D5 1/2NS 1,000 ML IV SCH ×2 (09:00→17:31)
[2018-11-20 09:17] LABS: BILIRUBIN,DIRECT 0.7 MG/DL (0.0-0.3)
--- NOTE | 2018-11-20 09:35 | NUR ---
NURSE NOTES: VITALS OBTAINED THIS A.M. NOTED TEMP 100.9 ORALLY. ADMINISTERED TYLENOL 650 MG PO. RE-ASSESSED TEMP, CURRENTLY 100.2 ORALLY. PLACED CALL TO DR. SCHAEFFER TO REPORT WELL POTASSIUM LEVEL 3.1/MAGNESIUM LEVEL 3.1 NEW ORDERS RECEIVED. PATIENT /FAMILY KEPT INFORMED.
[2018-11-20 11:47] VITALS: BP 145/92
--- NOTE | 2018-11-20 11:50 | NUR ---
CASE MANAGEMENT:REVIEW 11/20/18 SI: GALLSTONE PANCREATITIS 100.2 94 18 140/93 96% ON RA WBC+15.6 ESR+27 K-3.1 IS: IV ZOSYN Q8HRS IVF@100/HR MAG OXIDE PO TID HEPARIN SQ Q12 IV MORPHINE Q4HRS : MED[facility]
--- NOTE | 2018-11-20 12:30 | NUR ---
NURSE NOTES: FEVER RESOLVED TEMP 98.0 ORALLY. DENIES N/V.
--- NOTE | 2018-11-20 14:09 | Internal Med Progress Note ---
Subjective Date of Service: Nov 20, 2018 Physician Name Patrice Arthur Attending Physician Jg Sykes MD Current Medications Medications (Trade) Dose Ordered Sig/Richi Route PRN Reason Start Time Stop Time Status Last Admin Dose Admin Acetaminophen (Tylenol) 650 mg Q6H PRN ORAL Mild Pain/Temp > 100.5 11/18/18 07:00 12/18/18 06:59 11/20/18 08:20 Dextrose/Sodium Chloride 1,000 ml @ 100 mls/hr Q10H IV 11/18/18 07:00 12/18/18 06:59 11/19/18 23:03 Heparin Sodium (Porcine) (Heparin 5000 units/ml) 5,000 units EVERY 12 HOURS SUBQ 11/18/18 09:00 12/18/18 08:59 11/20/18 08:21 Magnesium Oxide (Mag-Ox 400mg) 400 mg THREE TIMES A DAY ORAL 11/19/18 13:00 11/21/18 12:59 11/20/18 13:22 Magnesium Sulfate 100 ml @ 100 mls/hr Q1H IVPB 11/20/18 12:45 11/20/18 14:44 11/20/18 13:22 Morphine Sulfate (Morphine Sulfate) 2 mg Q4H PRN IVP Moderate Pain (Pain Scale 4-6) 11/18/18 09:00 11/25/18 08:59 11/19/18 15:32 Morphine Sulfate (Morphine Sulfate) 4 mg Q4H PRN IVP Severe Pain (Pain Scale 7-10) 11/18/18 07:00 11/25/18 06:59 11/20/18 03:37 Ondansetron HCl (Zofran) 4 mg Q4H PRN IVP Nausea & Vomiting 11/18/18 07:00 12/18/18 06:59 Piperacillin Sod/ Tazobactam Sod 3.375 gm/Sodium Chloride 110 ml @ 27.5 mls/hr Q8H IVPB 11/19/18 10:00 11/26/18 09:59 11/20/18 10:16 Allergies: Coded Allergies: No Known Allergies (Unverified , 11/18/18) ROS Limited/Unobtainable: No Constitutional: Reports: no symptoms HEENT: Reports: no symptoms Cardiovascular: Reports: no symptoms Respiratory: Reports: no symptoms Gastrointestinal/Abdominal: Reports: abdominal pain Genitourinary: Reports: no symptoms Neurologic/Psychiatric: Reports: no symptoms Subjective 53 YO M admitted with abdominal pain, nausea and vomiting. Now Gallstone pancreatitis. Cover for Int Germán-Dr Sykes Objective Last Vital Signs Date Time Temp Pulse Resp B/P (MAP) Pulse Ox O2 Delivery O2 Flow Rate FiO2 11/20/18 11:47 98.0 93 19 145/92 (109) 94 11/20/18 09:00 Room Air Laboratory Tests Test 11/20/18 07:15 White Blood Count 15.6 K/UL (4.8-10.8) H Red Blood Count 4.62 M/UL (4.70-6.10) L Hemoglobin 15.1 G/DL (14.2-18.0) Hematocrit 43.0 % (42.0-52.0) Mean Corpuscular Volume 93 FL (80-99) Mean Corpuscular Hemoglobin 32.6 PG (27.0-31.0) H Mean Corpuscular Hemoglobin Concent 35.0 G/DL (32.0-36.0) Red Cell Distribution Width 11.3 % (11.6-14.8) L Platelet Count 212 K/UL (150-450) Mean Platelet Volume 8.0 FL (6.5-10.1) Neutrophils (%) (Auto) 81.6 % (45.0-75.0) H Lymphocytes (%) (Auto) 10.1 % (20.0-45.0) L Monocytes (%) (Auto) 6.9 % (1.0-10.0) Eosinophils (%) (Auto) 0.8 % (0.0-3.0) Basophils (%) (Auto) 0.6 % (0.0-2.0) Erythrocyte Sedimentation Rate 27 MM/HR (0-20) H Sodium Level 137 MMOL/L (136-145) Potassium Level 3.1 MMOL/L (3.5-5.1) L Chloride Level 101 MMOL/L (98-107) Carbon Dioxide Level 26 MMOL/L (21-32) Anion Gap 10 mmol/L (5-15) Blood Urea Nitrogen < 1 mg/dL (7-18) L Creatinine 0.9 MG/DL (0.55-1.30) Estimat Glomerular Filtration Rate > 60 mL/min (>60) Glucose Level 144 MG/DL (74-106) H Calcium Level 8.8 MG/DL (8.5-10.1) Phosphorus Level 2.8 MG/DL (2.5-4.9) Magnesium Level 1.5 MG/DL (1.8-2.4) L Total Bilirubin 2.5 MG/DL (0.2-1.0) H Direct Bilirubin 0.7 MG/DL (0.0-0.3) H Aspartate Amino Transf (AST/SGOT) 47 U/L (15-37) H Alanine Aminotransferase (ALT/SGPT) 234 U/L (12-78) H Alkaline Phosphatase 111 U/L (46-116) C-Reactive Protein, Quantitative > 70.0 mg/dL (0.00-0.90) H Total Protein 7.1 G/DL (6.4-8.2) Albumin 3.1 G/DL (3.4-5.0) L Globulin 4.0 g/dL Albumin/Globulin Ratio 0.8 (1.0-2.7) L Amylase Level 92 U/L (25-115) Lipase 285 U/L (73-393) Intake and Output 11/19/18 11/20/18 19:00 07:00 Intake Total 1815.0 ml 1125.0 ml Balance 1815.0 ml 1125.0 ml Intake Oral 1050 ml 360 ml IV Total 765.0 ml 765.0 ml # Voids 3 3 Objective General Appearance: WD/WN, no apparent distress, alert EENT: PERRL/EOMI, normal ENT inspection Neck: non-tender, normal alignment, supple, normal inspection Cardiovascular: normal peripheral pulses, normal rate, regular rhythm, no gallop/murmur, no JVD Respiratory/Chest: chest wall non-tender, lungs clear, normal breath sounds, no respiratory distress, no accessory muscle use Abdomen: no organomegaly, no mass, decreased bowel sounds, guarding, tender Extremities: normal range of motion, non-tender 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 ERCP not indicated-see GI note. May require cholecystectomy-see surgery note. Status: progressing Assessment/Plan advance diet Patrice Arthur MD Nov 20, 2018 14:09
--- NOTE | 2018-11-20 15:34 | NUR ---
NURSE NOTES: PATIENT TOLERATED SOFT DIET. NO N/V NOTED.
[2018-11-20 15:57] VITALS: BP 140/90
--- NOTE | 2018-11-20 18:30 | NUR ---
NURSE NOTES: NOTED PATIENT TO HAVE ANOTHER TEMP 100.2 ORALLY THIS EVENING. PLACED CALL TO DR. QUINTERO TO REPORT. NEW ORDERS RECEIVED. PATIENT PLACED NPO AT THIS TIME. PER DR. QUINTERO, NO SURGERY PLANNED AT THIS TIME. PLACED CALL TO DR. GILL TO UPDATE OF PT. FEVER AND NEW ORDERS RECEIVED. PATIENT REMAINS ASYMPTOMATIC AND DENIES PAIN AFTER EATING SOFT DIET THIS EVENING.
--- NOTE | 2018-11-20 19:22 | General Surgery Progress Note ---
General Surgery-Progress Note Subjective Additional Comments still with RUQ pain. leukocytosis. low grade fever. labs abnormal Objective Last 24 Hour Vital Signs Date Time Temp Pulse Resp B/P (MAP) Pulse Ox O2 Delivery O2 Flow Rate FiO2 11/20/18 18:37 100.8 11/20/18 15:57 100.2 91 21 140/90 (107) 95 11/20/18 11:47 98.0 93 19 145/92 (109) 94 11/20/18 09:00 Room Air 11/20/18 08:00 100.9 94 18 140/93 (109) 96 11/20/18 04:00 98.0 91 17 126/91 (103) 96 11/20/18 00:00 99.8 91 18 140/95 (110) 97 11/19/18 21:00 Room Air 11/19/18 20:00 100.5 104 18 133/99 (110) 94 I&O Intake and Output 11/19/18 11/20/18 19:00 07:00 Intake Total 1815.0 ml 1125.0 ml Balance 1815.0 ml 1125.0 ml Intake Oral 1050 ml 360 ml IV Total 765.0 ml 765.0 ml # Voids 3 3 Cardiovascular: RSR Respiratory: clear Abdomen: soft, distended, tenderness, present bowel sounds Extremities: no cyanosis Laboratory Tests Test 11/20/18 07:15 White Blood Count 15.6 K/UL (4.8-10.8) H Red Blood Count 4.62 M/UL (4.70-6.10) L Hemoglobin 15.1 G/DL (14.2-18.0) Hematocrit 43.0 % (42.0-52.0) Mean Corpuscular Volume 93 FL (80-99) Mean Corpuscular Hemoglobin 32.6 PG (27.0-31.0) H Mean Corpuscular Hemoglobin Concent 35.0 G/DL (32.0-36.0) Red Cell Distribution Width 11.3 % (11.6-14.8) L Platelet Count 212 K/UL (150-450) Mean Platelet Volume 8.0 FL (6.5-10.1) Neutrophils (%) (Auto) 81.6 % (45.0-75.0) H Lymphocytes (%) (Auto) 10.1 % (20.0-45.0) L Monocytes (%) (Auto) 6.9 % (1.0-10.0) Eosinophils (%) (Auto) 0.8 % (0.0-3.0) Basophils (%) (Auto) 0.6 % (0.0-2.0) Erythrocyte Sedimentation Rate 27 MM/HR (0-20) H Sodium Level 137 MMOL/L (136-145) Potassium Level 3.1 MMOL/L (3.5-5.1) L Chloride Level 101 MMOL/L (98-107) Carbon Dioxide Level 26 MMOL/L (21-32) Anion Gap 10 mmol/L (5-15) Blood Urea Nitrogen < 1 mg/dL (7-18) L Creatinine 0.9 MG/DL (0.55-1.30) Estimat Glomerular Filtration Rate > 60 mL/min (>60) Glucose Level 144 MG/DL (74-106) H Calcium Level 8.8 MG/DL (8.5-10.1) Phosphorus Level 2.8 MG/DL (2.5-4.9) Magnesium Level 1.5 MG/DL (1.8-2.4) L Total Bilirubin 2.5 MG/DL (0.2-1.0) H Direct Bilirubin 0.7 MG/DL (0.0-0.3) H Aspartate Amino Transf (AST/SGOT) 47 U/L (15-37) H Alanine Aminotransferase (ALT/SGPT) 234 U/L (12-78) H Alkaline Phosphatase 111 U/L (46-116) C-Reactive Protein, Quantitative > 70.0 mg/dL (0.00-0.90) H Total Protein 7.1 G/DL (6.4-8.2) Albumin 3.1 G/DL (3.4-5.0) L Globulin 4.0 g/dL Albumin/Globulin Ratio 0.8 (1.0-2.7) L Amylase Level 92 U/L (25-115) Lipase 285 U/L (73-393) Plan Problems: (1) Acute gallstone pancreatitis Assessment & Plan: Acute gallstone pancreatitis Leukocytosis LFT's improved Lipase improved CT noted. US and MRCP noted clinically likely has cholecystitis / acute gallstone pancreatitis NPO IV fluids IV Abx trend labs will evaluate for cholecystectomy as patient recovers. thank you will follow with recs. Steve Benson Nov 20, 2018 19:22
--- NOTE | 2018-11-20 19:38 | NUR ---
HAND-OFF: Report given to MENDOZA Ram RN.
--- NOTE | 2018-11-20 19:42 | NUR ---
NURSE NOTES: Received report from Marli RG. Pt in stable condition. No s/s of distress or discomfort noted. Pt denies any pain. Pt on room air. Says will notify nurse of any changes. Bed in low and locked position, call light within reach, bedside table within reach. continue to monitor.
[2018-11-20 20:00] VITALS: BP 140/93
[2018-11-21] VITALS: BP 137/88
[2018-11-21] MEDS: Piperacillin/Tazobactam 3.375 GM in NS 110 ML IVPB SCH ×3 (02:12→17:40)
[2018-11-21 04:00] VITALS: BP 139/98
[2018-11-21] MEDS: D5 1/2NS 1,000 ML IV SCH (04:49)
[2018-11-21 06:27] LABS: BASOPHILS % (AUTO) 0.5 % (0.0-2.0); EOSINOPHILS % (AUTO) 1.1 % (0.0-3.0); HEMATOCRIT 40.7 % (42.0-52.0); HEMOGLOBIN 14.3 G/DL (14.2-18.0); LYMPHOCYTES % (AUTO) 10.2 % (20.0-45.0); MEAN CORPUSCULAR VOLUME 93 FL (80-99); MONOCYTES % (AUTO) 6.5 % (1.0-10.0); NEUTROPHILS % (AUTO) 81.7 % (45.0-75.0); PLATELET COUNT 221 K/UL (150-450); RED BLOOD COUNT 4.39 M/UL (4.70-6.10); RED CELL DISTRIBUTION WIDTH 10.9 % (11.6-14.8); WHITE BLOOD COUNT 15.6 K/UL (4.8-10.8)
[2018-11-21 07:05] LABS: ALANINE AMINOTRANSFERASE 141 U/L (12-78); ALBUMIN/GLOBULIN RATIO 0.7 (1.0-2.7); ALKALINE PHOSPHATASE 94 U/L (46-116); ANION GAP 9 mmol/L (5-15); ASPARTATE AMINO TRANSFERASE 17 U/L (15-37); BILIRUBIN,TOTAL 1.7 MG/DL (0.2-1.0); BLOOD UREA NITROGEN 8 mg/dL (7-18); CALCIUM 8.6 MG/DL (8.5-10.1); CARBON DIOXIDE 25 MMOL/L (21-32); CHLORIDE 102 MMOL/L (98-107); CREATININE 0.8 MG/DL (0.55-1.30); POTASSIUM 3.3 MMOL/L (3.5-5.1); SODIUM 136 MMOL/L (136-145)
[2018-11-21 07:06] LABS: AMYLASE 49 U/L (25-115)
[2018-11-21 07:07] LABS: BILIRUBIN,DIRECT 0.4 MG/DL (0.0-0.3)
[2018-11-21 08:00] VITALS: BP 141/100
--- NOTE | 2018-11-21 08:00 | NUR ---
HAND-OFF: Report given to Ramy RG. endorsed plan of care.
--- NOTE | 2018-11-21 08:15 | NUR ---
NURSE NOTES: Pt received from IFRAH Flores alert and oriented x4 with no s/s of pain, SOB, or n/v at this time. Mostly Sammarinese-speaking but is able to speak Swedish. IV site asymptomatic and patent, running to prescribed IV fluids. Bed in lowest position, call light and belongings within reach. and son at bedside.
[2018-11-21] MEDS: Magnesium Oxide 400mg tab ORAL SCH (09:40)
--- NOTE | 2018-11-21 09:45 | NUR ---
NURSE NOTES: RN endorsed low Potassium of 3.[address] Sykes. Per Dr. Sykes, switch IV fluids to D5 1/2 NS with 20 of KCL at 100.
[2018-11-21] MEDS: Heparin 5000 units/ml inj SUBQ SCH ×2 (09:46→21:02)
--- NOTE | 2018-11-21 09:50 | Diagnostic Imaging Report ---
Indication: Cough Technique: One view of the chest Comparison: none Findings: Lungs and pleural spaces are clear. Heart size is normal Impression: No acute process
--- NOTE | 2018-11-21 10:48 | GI Progress Note ---
Assessment/Plan Problems: (1) Nausea & vomiting ICD Codes: R11.2 - Nausea with vomiting, unspecified SNOMED: 32845077 (2) Abdominal pain, right upper quadrant ICD Codes: R10.11 - Right upper quadrant pain SNOMED: 663128553 (3) Acute gallstone pancreatitis ICD Codes: K85.10 - Biliary acute pancreatitis without necrosis or infection SNOMED: 856814941 Status: stable Status Narrative Discussed with Dr. Ayala Assessment/Plan improving LFTS neg MRCP for CBD stones no need for ERCP at this time fu labs fu surg recs The patient was seen and examined at bedside and all new and available data was reviewed in the patients chart. I agree with the above findings, impression and plan. (Patient seen earlier today. Signature stamp does not reflect patient encounter time.). - Lonnie Ayala MD Subjective Subjective Abdominal pain resolved Patient was able to tolerate diet yesterday Objective Last 24 Hour Vital Signs Date Time Temp Pulse Resp B/P (MAP) Pulse Ox O2 Delivery O2 Flow Rate FiO2 11/21/18 04:00 100.0 95 18 139/98 (112) 95 11/21/18 00:00 98.9 90 19 137/88 (104) 95 11/20/18 21:00 Room Air 11/20/18 20:00 100.2 93 18 140/93 (109) 95 11/20/18 18:37 100.8 11/20/18 15:57 100.2 91 21 140/90 (107) 95 11/20/18 11:47 98.0 93 19 145/92 (109) 94 Intake and Output 11/20/18 11/21/18 19:00 07:00 Intake Total 1847.5 ml 927.5 ml Balance 1847.5 ml 927.5 ml Intake Oral 960 ml IV Total 887.5 ml 927.5 ml # Voids 2 2 Laboratory Tests Test 11/21/18 04:55 White Blood Count 15.6 K/UL (4.8-10.8) H Red Blood Count 4.39 M/UL (4.70-6.10) L Hemoglobin 14.3 G/DL (14.2-18.0) Hematocrit 40.7 % (42.0-52.0) L Mean Corpuscular Volume 93 FL (80-99) Mean Corpuscular Hemoglobin 32.6 PG (27.0-31.0) H Mean Corpuscular Hemoglobin Concent 35.1 G/DL (32.0-36.0) Red Cell Distribution Width 10.9 % (11.6-14.8) L Platelet Count 221 K/UL (150-450) Mean Platelet Volume 8.4 FL (6.5-10.1) Neutrophils (%) (Auto) 81.7 % (45.0-75.0) H Lymphocytes (%) (Auto) 10.2 % (20.0-45.0) L Monocytes (%) (Auto) 6.5 % (1.0-10.0) Eosinophils (%) (Auto) 1.1 % (0.0-3.0) Basophils (%) (Auto) 0.5 % (0.0-2.0) Sodium Level 136 MMOL/L (136-145) Potassium Level 3.3 MMOL/L (3.5-5.1) L Chloride Level 102 MMOL/L (98-107) Carbon Dioxide Level 25 MMOL/L (21-32) Anion Gap 9 mmol/L (5-15) Blood Urea Nitrogen 8 mg/dL (7-18) Creatinine 0.8 MG/DL (0.55-1.30) Estimat Glomerular Filtration Rate > 60 mL/min (>60) Glucose Level 127 MG/DL (74-106) H Calcium Level 8.6 MG/DL (8.5-10.1) Total Bilirubin 1.7 MG/DL (0.2-1.0) H Direct Bilirubin 0.4 MG/DL (0.0-0.3) H Aspartate Amino Transf (AST/SGOT) 17 U/L (15-37) Alanine Aminotransferase (ALT/SGPT) 141 U/L (12-78) H Alkaline Phosphatase 94 U/L (46-116) Total Protein 7.1 G/DL (6.4-8.2) Albumin 3.0 G/DL (3.4-5.0) L Globulin 4.1 g/dL Albumin/Globulin Ratio 0.7 (1.0-2.7) L Amylase Level 49 U/L (25-115) Lipase 168 U/L (73-393) Height (Feet): 5 Height (Inches): 8.00 Weight (Pounds): 220 General Appearance: WD/WN, no apparent distress, alert Cardiovascular: normal rate Respiratory/Chest: normal breath sounds, no respiratory distress Abdominal Exam: normal bowel sounds, non tender, soft Extremities: normal range of motion, non-tender Krystin Roa NP Nov 21, 2018 10:48
[2018-11-21 12:00] VITALS: BP 124/91
[2018-11-21] MEDS: Morphine Sulfate 4mg/ml Inj (IV/IM USE ONLY) IVP PRN (13:12)
[2018-11-21] MEDS: D5 1/2NS w/KCl 20mEq 1,000 ML IV SCH ×2 (13:13→22:30)
--- NOTE | 2018-11-21 14:37 | NUR ---
CASE MANAGEMENT: REVIEW SI: GALLSTONE . PANCREATITIS T 100.2 HR 95 RR 20 BP 141/100 SAT 95% ROOM AIR WBC 15.6 K 3.3 IS: D5 1/2 NS w/KCl 20mEq IVF @ 100ML/HR ZOSYN IV Q8HR HEPARIN SQ Q12HR MORPHINE IV Q4HR PRN MED/SURG STATUS DCP: PATIENT IS FROM HOME
[2018-11-21 16:00] VITALS: BP 138/83
--- NOTE | 2018-11-21 16:11 | NUR ---
CASE MANAGEMENT: DCPNOTE PER INSURANCE COMPANY [facility]IENT [facility] CHIEF PAYROLL CLERK MUNA [phone] WILL CALL BACK WITH BED ASSIGNMENT AND TRANSPORTATION ARRANGEMENTS PATIENT AND FAMILY IN AGREEMENT TO TRANSFER TO THIS FACILITY
--- NOTE | 2018-11-21 16:19 | NUR ---
NURSE NOTES: RN and Charge Nurse Irma informed of pt's transfer to [facility] d/t insurance issues by [employer] Fulfillment Coordinator pending bed availability. Will carry out orders Addendum: 11/21/18 at 1900 by Ramy Veliz RN Pt will be transferred to [facility].
--- NOTE | 2018-11-21 17:33 | General Surgery Progress Note ---
General Surgery-Progress Note Subjective Additional Comments pain improved. no n/v. low grade fevers. leukocytosis slightly improved. Objective Last 24 Hour Vital Signs Date Time Temp Pulse Resp B/P (MAP) Pulse Ox O2 Delivery O2 Flow Rate FiO2 11/21/18 16:00 99.0 92 20 138/83 (101) 95 11/21/18 12:00 99.3 95 20 124/91 (102) 94 11/21/18 09:00 Room Air 11/21/18 08:00 99.7 94 20 141/100 (114) 96 11/21/18 04:00 100.0 95 18 139/98 (112) 95 11/21/18 00:00 98.9 90 19 137/88 (104) 95 11/20/18 21:00 Room Air 11/20/18 20:00 100.2 93 18 140/93 (109) 95 11/20/18 18:37 100.8 I&O Intake and Output 11/20/18 11/21/18 19:00 07:00 Intake Total 1847.5 ml 927.5 ml Balance 1847.5 ml 927.5 ml Intake Oral 960 ml IV Total 887.5 ml 927.5 ml # Voids 2 2 Drains: none Cardiovascular: RSR Respiratory: clear Abdomen: soft, distended, non-tender, present bowel sounds Extremities: no cyanosis Laboratory Tests Test 11/21/18 04:55 White Blood Count 15.6 K/UL (4.8-10.8) H Red Blood Count 4.39 M/UL (4.70-6.10) L Hemoglobin 14.3 G/DL (14.2-18.0) Hematocrit 40.7 % (42.0-52.0) L Mean Corpuscular Volume 93 FL (80-99) Mean Corpuscular Hemoglobin 32.6 PG (27.0-31.0) H Mean Corpuscular Hemoglobin Concent 35.1 G/DL (32.0-36.0) Red Cell Distribution Width 10.9 % (11.6-14.8) L Platelet Count 221 K/UL (150-450) Mean Platelet Volume 8.4 FL (6.5-10.1) Neutrophils (%) (Auto) 81.7 % (45.0-75.0) H Lymphocytes (%) (Auto) 10.2 % (20.0-45.0) L Monocytes (%) (Auto) 6.5 % (1.0-10.0) Eosinophils (%) (Auto) 1.1 % (0.0-3.0) Basophils (%) (Auto) 0.5 % (0.0-2.0) Sodium Level 136 MMOL/L (136-145) Potassium Level 3.3 MMOL/L (3.5-5.1) L Chloride Level 102 MMOL/L (98-107) Carbon Dioxide Level 25 MMOL/L (21-32) Anion Gap 9 mmol/L (5-15) Blood Urea Nitrogen 8 mg/dL (7-18) Creatinine 0.8 MG/DL (0.55-1.30) Estimat Glomerular Filtration Rate > 60 mL/min (>60) Glucose Level 127 MG/DL (74-106) H Calcium Level 8.6 MG/DL (8.5-10.1) Total Bilirubin 1.7 MG/DL (0.2-1.0) H Direct Bilirubin 0.4 MG/DL (0.0-0.3) H Aspartate Amino Transf (AST/SGOT) 17 U/L (15-37) Alanine Aminotransferase (ALT/SGPT) 141 U/L (12-78) H Alkaline Phosphatase 94 U/L (46-116) Total Protein 7.1 G/DL (6.4-8.2) Albumin 3.0 G/DL (3.4-5.0) L Globulin 4.1 g/dL Albumin/Globulin Ratio 0.7 (1.0-2.7) L Amylase Level 49 U/L (25-115) Lipase 168 U/L (73-393) Plan Problems: (1) Acute gallstone pancreatitis Assessment & Plan: Acute gallstone pancreatitis Leukocytosis LFT's improved Lipase improved CT noted. US and MRCP noted clinically likely has cholecystitis / acute gallstone pancreatitis NPO IV fluids IV Abx trend labs - leukocytosis. lipase resolved. lft's imroving will evaluate for cholecystectomy as patient recovers. thank you will follow with recs. Steve Benson Nov 21, 2018 17:33
--- NOTE | 2018-11-21 18:06 | Internal Med Progress Note ---
Subjective Date of Service: Nov 21, 2018 Physician Name Patrice Arthur Attending Physician Jg Sykes MD Current Medications Medications (Trade) Dose Ordered Sig/Richi Route PRN Reason Start Time Stop Time Status Last Admin Dose Admin Acetaminophen (Tylenol) 650 mg Q6H PRN ORAL Mild Pain/Temp > 100.5 11/18/18 07:00 12/18/18 06:59 11/20/18 18:07 Dextrose/ Electrolytes 1,000 ml @ 100 mls/hr Q10H IV 11/21/18 12:30 12/21/18 12:29 11/21/18 13:13 Heparin Sodium (Porcine) (Heparin 5000 units/ml) 5,000 units EVERY 12 HOURS SUBQ 11/18/18 09:00 12/18/18 08:59 11/21/18 09:46 Morphine Sulfate (Morphine Sulfate) 2 mg Q4H PRN IVP Moderate Pain (Pain Scale 4-6) 11/18/18 09:00 11/25/18 08:59 11/19/18 15:32 Morphine Sulfate (Morphine Sulfate) 4 mg Q4H PRN IVP Severe Pain (Pain Scale 7-10) 11/18/18 07:00 11/25/18 06:59 11/21/18 13:12 Ondansetron HCl (Zofran) 4 mg Q4H PRN IVP Nausea & Vomiting 11/18/18 07:00 12/18/18 06:59 Piperacillin Sod/ Tazobactam Sod 3.375 gm/Sodium Chloride 110 ml @ 27.5 mls/hr Q8H IVPB 11/19/18 10:00 11/26/18 09:59 11/21/18 17:40 Allergies: Coded Allergies: No Known Allergies (Unverified , 11/18/18) ROS Limited/Unobtainable: No Constitutional: Reports: no symptoms HEENT: Reports: no symptoms Cardiovascular: Reports: no symptoms Respiratory: Reports: no symptoms Gastrointestinal/Abdominal: Reports: abdominal pain, nausea, vomiting Genitourinary: Reports: no symptoms Neurologic/Psychiatric: Reports: no symptoms Subjective 53 YO M admitted with abdominal pain, nausea and vomiting. Now Gallstone pancreatitis. Cover for Int Germán-Dr Sykes. Await transfer to contracted facility=[facility] Objective Last Vital Signs Date Time Temp Pulse Resp B/P (MAP) Pulse Ox O2 Delivery O2 Flow Rate FiO2 11/21/18 16:00 99.0 92 20 138/83 (101) 95 11/21/18 09:00 Room Air Laboratory Tests Test 11/21/18 04:55 White Blood Count 15.6 K/UL (4.8-10.8) H Red Blood Count 4.39 M/UL (4.70-6.10) L Hemoglobin 14.3 G/DL (14.2-18.0) Hematocrit 40.7 % (42.0-52.0) L Mean Corpuscular Volume 93 FL (80-99) Mean Corpuscular Hemoglobin 32.6 PG (27.0-31.0) H Mean Corpuscular Hemoglobin Concent 35.1 G/DL (32.0-36.0) Red Cell Distribution Width 10.9 % (11.6-14.8) L Platelet Count 221 K/UL (150-450) Mean Platelet Volume 8.4 FL (6.5-10.1) Neutrophils (%) (Auto) 81.7 % (45.0-75.0) H Lymphocytes (%) (Auto) 10.2 % (20.0-45.0) L Monocytes (%) (Auto) 6.5 % (1.0-10.0) Eosinophils (%) (Auto) 1.1 % (0.0-3.0) Basophils (%) (Auto) 0.5 % (0.0-2.0) Sodium Level 136 MMOL/L (136-145) Potassium Level 3.3 MMOL/L (3.5-5.1) L Chloride Level 102 MMOL/L (98-107) Carbon Dioxide Level 25 MMOL/L (21-32) Anion Gap 9 mmol/L (5-15) Blood Urea Nitrogen 8 mg/dL (7-18) Creatinine 0.8 MG/DL (0.55-1.30) Estimat Glomerular Filtration Rate > 60 mL/min (>60) Glucose Level 127 MG/DL (74-106) H Calcium Level 8.6 MG/DL (8.5-10.1) Total Bilirubin 1.7 MG/DL (0.2-1.0) H Direct Bilirubin 0.4 MG/DL (0.0-0.3) H Aspartate Amino Transf (AST/SGOT) 17 U/L (15-37) Alanine Aminotransferase (ALT/SGPT) 141 U/L (12-78) H Alkaline Phosphatase 94 U/L (46-116) Total Protein 7.1 G/DL (6.4-8.2) Albumin 3.0 G/DL (3.4-5.0) L Globulin 4.1 g/dL Albumin/Globulin Ratio 0.7 (1.0-2.7) L Amylase Level 49 U/L (25-115) Lipase 168 U/L (73-393) Intake and Output 11/20/18 11/21/18 19:00 07:00 Intake Total 1847.5 ml 927.5 ml Balance 1847.5 ml 927.5 ml Intake Oral 960 ml IV Total 887.5 ml 927.5 ml # Voids 2 2 Objective General Appearance: WD/WN, no apparent distress, alert EENT: PERRL/EOMI, normal ENT inspection Neck: non-tender, normal alignment, supple, normal inspection Cardiovascular: normal peripheral pulses, normal rate, regular rhythm, no gallop/murmur, no JVD Respiratory/Chest: chest wall non-tender, lungs clear, normal breath sounds, no respiratory distress, no accessory muscle use Abdomen: no organomegaly, no mass, decreased bowel sounds, guarding, tender Extremities: normal range of motion, non-tender 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 ERCP not indicated-see GI note. May require cholecystectomy-see surgery note. Assessment/Plan Transfer to contracted facility when bed available-[facility]- see case management note Patrice Arthur MD Nov 21, 2018 18:06
--- NOTE | 2018-11-21 19:25 | NUR ---
NURSE NOTES: Per [place] from [facility], give report to . Call [facility] for transport to [phone] (#[phone]).
--- NOTE | 2018-11-21 19:29 | NUR ---
HAND-OFF: Report given to IFRAH Nunez.
--- NOTE | 2018-11-21 19:39 | NUR ---
NURSE NOTES: Report taken from IFRAH Mccann. Patient is alert and oriented in bed, family at the bedside. On room air, no signs of distress, 4/10 pain but calm. IV site c/d/i and patent. patient will be getting discharged tonight to [facility], RN explained the discharge process and timeline. Bed in lowest position, call light within reach.
[2018-11-21 20:00] VITALS: BP 140/91
[2018-11-21] MEDS ORDERED: ACETAMINOPHEN325 M1 ORAL (20:21)
[2018-11-21] MEDS ORDERED: HEPARIN SO5000 UNIT2 SUBQ (20:28)
[2018-11-21] MEDS ORDERED: MORPHINE SU4 MG/1 ML IVP (20:57)
[2018-11-21] MEDS ORDERED: ONDANSETRON4 MG/2 M2 IVP (21:09)
--- NOTE | 2018-11-21 23:05 | NUR ---
NURSE NOTES: Patient going to be transferred to [facility], report given to IFRAH Sloan. Patient in stable condition. Jose was called, set up transport with Tamra [phone]. Stated that estimated arrival to [facility] will be around 2330.
[2018-11-22] MEDS ORDERED: Tubing IV Secondary IV ONE (00:29)
[2018-11-22] MEDS ORDERED: D5 1/2NS 1000ml IV ONE (00:29)
--- NOTE | 2018-11-22 00:31 | NUR ---
NURSE NOTES: Ambulance arrived to [facility] picker patient for transport to [facility]. Report given to [facility]. Patients vitals stable. IV c/d/i, disconnected from fluids. Patient aware of transfer, family will be going with him to the other hospital.
--- NOTE | 2018-11-23 14:35 | Discharge Summary ---
Discharge Summary Discharge Summary _ DATE OF ADMISSION: 11/18/2018 DATE OF DISCHARGE: 11/22/2018 DISCHARGED BY: Dr. Sykes REASON FOR ADMISSION: 53 years old male without significant past medical history presented to the hospital complaining of the right-sided abdominal pain , associated with nausea and vomiting . Pain intensity reported to be 9 out of 10 on a scale 1-10 . Pain was nonradiating , mostly located on the right side of the upper abdomen; camping and sharp. No diarrhea . Patient denied any trauma or injury to abdomen . No fever or chills. No previous abdominal surgery. Vital signs reveal a blood pressure of 81/54. No fever. Laboratory workup revealed leukocytosis WBC 15.7, stable hemoglobin hematocrit. Lipase 21817. AST 656. ALT 693. Alkaline phosphatase 143. BUN 14 creatinine 1.5. Urinalysis +2 protein , but no evidence of urinary tract infection. CT of the abdomen and pelvis revealed acute pancreatitis. Calcified wall of the fundal region of the gallbladder versus prominent gallstones. Probable mild fatty liver. Diverticulosis of the colon without definite diverticulitis. Moderate sized hiatal hernia. Nonobstructive tiny stones in the right kidney. Abdominal ultrasound revealed gallstone versus focal calcification of the gallbladder fundus, negative sonographic De La Fuente sign. Patient admitted with diagnosis of acute abdominal pain with abnormal liver enzymes, possibly due to acute gallstone pancreatitis. CONSULTANTS: GI specialist Dr. Ayala surgery Dr. Benson [facility] COURSE: Patient admitted to medical surgical floor. Patient was kept n.p.o, started on IV fluids and empiric antibiotics. GI and surgery consults were requested. Pain management was addressed. DVT prophylaxis with heparin provided. Patient subsequently undergone MRCP of the abdomen which revealed cholelithiasis. No evidence of biliary ductal dilatation or choledocholithiasis. Acute pancreatitis was confirmed. Left renal cyst. LFT and lipase were trending. Lipase down to normal 158. CA-19-9 within normal range. Amylase down to normal 49. AST down to normal 17 ,ALT minimally elevated 141. Renal parameters and electrolytes were closely monitored. Electrolytes corrected as needed/potassium and magnesium. Nephrotoxins were avoided. Creatinine down to 0.8. GI specialist closely follow. MRCP was negative for common bile stone. No need for ERCP at this time. Pain management was addressed , and pain was eventually controlled. Bowel regimen instituted. Intermittent fevers on 11/19 and 11/20 noted, resolved, but still with leukocytosis. Elevated ESR and CRP. Blood and urine culture negative, Empiric antibiotic continued. Per surgeon patient needs to be evaluated for cholecystectomy , when stabilized. Urine cultures Patient required transfer to [facility] for further management. Patient stabilized and was ready for transfer. FINAL DIAGNOSES: Acute gallstone pancreatitis Abdominal pain, right upper quadrant with nausea and vomiting , likely secondary to acute gallstone pancreatitis Abnormal LFT DISCHARGE MEDICATIONS: See Medication Reconciliation list. DISCHARGE INSTRUCTIONS:Patient was transferred to [facility] for further management . I have been assigned to dictate discharge summary for this account. I was not involved in the patient's management. Corazon Estrada NP Nov 23, 2018 14:35
== END 2018-11-22 00:30 | disposition short-term general hospital (02) | DRG 282 ==
LOC: EMR 03:10 → 3E 05:00 → EDBEDREQ 05:14
DX: K85.10 Biliary acute pancreatitis without necrosis or infection (principal); K76.0 Fatty (change of) liver, not elsewhere classified; K57.90 Diverticulosis of intestine, part unspecified, without perforation or abscess without bleeding
CPT/HCPCS: 36415; 71045; 74176; 74181; 76700; 80053; 80061; 81003; 82150; 82248; 83690; 83735; 84100; 85025; 85610; 85651; 85730; 86140; 87040; 87086; 96361; 96374; 96375; 99285; J2405; J8499